=== PATIENT | female | born 1975 | race Caucasian/White ===

== ENCOUNTER 2018-05-17 10:28 | Emergency (ER) | payer OTHER, SELFPAY ==
[2018-05-17 10:37] VITALS: BP 170/107; PULSE 84; RESP 18; O2SAT 96; BMI 38.6
--- NOTE | 2018-05-17 11:26 | DI.RAD.S_ITS ---
PROCEDURE: XR CHEST 1V INDICATIONS: chest pain TECHNIQUE: One view of the chest was acquired. COMPARISON: None. FINDINGS: Surgical changes and devices: None. Lungs and pleura: No pleural effusions or pneumothorax. Lungs are clear. Mediastinum: Mediastinal contours appear normal. Heart size is normal. Bones and chest wall: No suspicious bony lesions. Overlying soft tissues appear unremarkable. IMPRESSION: No acute process. Dictated by: Armin Frey M.D. on 05/17/2018 at 12:06 Approved by: Armin Frey M.D. on 05/17/2018 at 12:06
[2018-05-17 11:32] LABS: Prothrombin Time 11.9 SECONDS (10.1-12.7)
[2018-05-17 11:34] LABS: Add Manual Diff / Slide Review NO; Basophils Percent Auto 0.9 % (0-2); Hematocrit 41.8 % (36-46); Hemoglobin 14.3 g/dL (12.0-16.0); Lymphocytes Percent Auto 29.8 % (25-40); Mean Corpuscular HGB Conc 34.1 % (30-36); Mean Corpuscular Hemoglobin 32.9 PG (26-34); Mean Corpuscular Volume 96.6 fL (80-100); Neutrophils Absolute Auto 5200 /uL (1500-7000); Neutrophils Percent Auto 62.3 % (50-75); Platelet Count 202 X10^3/uL (150-400); Red Blood Cell Count 4.33 X10^6/uL (4.0-5.2); Red Cell Distribution Width 13.2 % (11.6-14.8); White Blood Cell Count 8.3 X10^3/uL (4.5-11.0)
[2018-05-17 11:35] LABS: PTT Partial Thromboplastin Tim 29 SECONDS (26.4-36.2)
[2018-05-17 11:37] LABS: Alanine Aminotransferase 27 IU/L (9-52); Albumin 4.1 g/dL (3.5-5.0); Albumin Globulin Ratio 1.3 (1.0-2.8); Alkaline Phosphatase 53 U/L (38-126); Aspartate Aminotransferase 21 IU/L (14-36); BUN Creatinine Ratio 21.7 (6-22); Bilirubin Total 0.5 mg/dL (0.2-1.3); Blood Urea Nitrogen 13 mg/dL (7-17); Calcium 8.9 mg/dL (8.4-10.2); Carbon Dioxide 27 mmol/L (22-32); Chloride 106 mmol/L (98-107); Creatine Kinase 62 U/L (30-135); Estimated Glomerular Filt Rate > 60.0 mL/min (>60); Globulin 3.1 g/dL (1.7-4.1); Glucose 118 mg/dL (70-100); HEMOLYSIS < 15 (0-50); Lipase 57 U/L (23-300); Potassium 3.5 mmol/L (3.4-5.1); Sodium 143 mmol/L (137-145); Total Protein 7.2 g/dL (6.3-8.2)
[2018-05-17 11:50] LABS: Troponin I < 0.012 ng/mL (0.01-0.034)
--- NOTE | 2018-05-17 12:12 | ED.SOB ---
HPI - SOB/Dyspnea <Adina Perez PA-C - Last Filed: 05/17/18 19:39> General Chief Complaint: Shortness of Breath/Dyspnea Stated Complaint: MIGRAINE, CHEST PAIN, DIFF TO BREATH, ARM PAIN Time Seen by Provider: 05/17/18 12:12 Source: patient Mode of arrival: ambulatory Limitations: no limitations History of Present Illness This 43-year-old female comes to ED mainly due to increased dyspnea. She does have a history of COPD and states her home nebulizer treatments and albuterol inhaler have not been working (she has been on numerous other inhalers in the past but states she can't afford them now and does not have a PCP). She states that she has had this for 8 days, with increased coarse cough, clear sputum, and her chest feels tight, painful with breathing in. She also has chest pressure that she states is constant, there / regardless of activity. This has not acutely changed. She states that she coughs so hard at times that she can pass out. This is not new with her COPD. She states she has some bilateral earache, no increased sinus pressure or congestion, no sore throat. She states that she has also had a migraine all along with this. She states that she is not sleeping due to being up coughing. She has poor appetite. She states she has also developed soreness in her right shoulder, arm, wrist, and hand as well as her abdominal area. She states that she has had some nausea but no vomiting. She denies any new leg swelling or calf pain. She does notice some paresthesia in her fingers at times. 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 She has many aches but denies generalized body aches, denies fever, chills, sweats, or other new complaints on systems review other than feeling general malaise Related Data Home Medications Medication Instructions Recorded Confirmed acetaminophen [Tylenol] 1 dose PO PRN PRN 05/17/18 05/17/18 albuterol sulfate [ProAir HFA] 1 puff INHALATION PRN PRN 05/17/18 05/17/18 ibuprofen 1 dose PO PRN PRN 05/17/18 05/17/18 ipratropium-albuterol 3 ml INHALATION QID PRN 05/17/18 05/17/18 Previous Rx's Medication Instructions Recorded albuterol sulfate 2 inhalation INHALATION Q4H PRN #1 05/17/18 each codeine-guaifenesin 10 ml PO Q4-6H PRN #120 ml 05/17/18 prednisone 40 mg PO DAILY #8 tab 05/17/18 Allergies Allergy/AdvReac Type Severity Reaction Status Date / Time Penicillins Allergy Intermediate Hives Verified 05/17/18 10:42 Review of Systems <Adina Perez PA-C - Last Filed: 05/17/18 19:39> Review of Systems All systems reviewed & are unremarkable except as noted in HPI and below PFSH <Adina Perez PA-C - Last Filed: 05/17/18 19:39> Comment: No EtOH Exam <Adina Perez PA-C - Last Filed: 05/17/18 19:39> Narrative Exam Narrative: GENERAL APPEARANCE: Patient appears comfortable, intermittently tearful HEENT: PERRL, EOMI, TMs intact with dull light reflexes, normal oropharynx with a little PND noted NECK: Supple, no masses LUNGS: Generalized coarse breath sounds with expiratory wheezes, occasional hoarse cough on exam HEART: Rate and rhythm regular, normal S1 and S2, no S3 or S4. ABDOMEN: Soft, obese, nondistended, bowel sounds present x 4 quadrants, no masses palpable, no hepatosplenomegaly. Moderate generalized tenderness without guarding or rebound EXTREMITIES: No edema, no calf tenderness DERMATOLOGIC: No jaundice or exanthem NEUROLOGIC: Alert and oriented with normal speech and coordination MUSCULOSKELETAL: Moderate tenderness over the right superior shoulder, full range of motion of the right upper extremity throughout Initial Vital Signs Initial Vital Signs: Vital Signs Pulse Rate 84 05/17/18 10:37 Respiratory Rate 18 05/17/18 10:37 Blood Pressure 170/107 H 05/17/18 10:37 Pulse Oximetry 96 05/17/18 10:37 <Annamarie Sewell DO - Last Filed: 05/17/18 19:50> Initial Vital Signs Initial Vital Signs: Vital Signs Pulse Rate 84 05/17/18 10:37 Respiratory Rate 18 05/17/18 10:37 Blood Pressure 170/107 H 05/17/18 10:37 Pulse Oximetry 96 05/17/18 10:37 Course <Adina Perez PA-C - Last Filed: 05/17/18 19:39> Additional Information: Patient was sleeping comfortably prior to discharge, with improvement in her headache and chest tightness. She had reduced wheeze. She has been off of her steroid inhalers and maintenance therapy due to finances. Advised her to follow up with her PCP to talk about whether she may be able to get samples or eligible for patient assistance. For now, she will continue prednisone for the next 4 days, albuterol as needed, and agrees to schedule follow-up with her PCP early next week, return in the interim if acutely worse again Orders Ordered: ED Orders 05/17/18 11:15 Complete Blood Count AUTO DIFF Stat Comprehensive Metabolic Panel Stat Lipase Stat Partial Thromboplastin Time Stat Prothrombin Time INR Stat Troponin & CK Cardiac Panel Stat 05/17/18 11:26 XR chest 1V Stat 05/17/18 12:25 D Dimer Stat 05/17/18 13:00 Influenza A and B by PCR Rapid Stat Discontinued Medications Albuterol (Ventolin) 2.5 mg INH NOW ONE Stop: 05/17/18 12:31 Last Admin: 05/17/18 14:17 Dose: 2.5 mg Albuterol/Ipratropium (Duoneb) 3 ml INH NOW ONE Stop: 05/17/18 12:31 Last Admin: 05/17/18 12:58 Dose: 3 ml Diphenhydramine HCl (Benadryl) 50 mg IV NOW ONE Stop: 05/17/18 12:26 Last Admin: 05/17/18 13:01 Dose: 50 mg Sodium Chloride (Normal Saline 0.9%) 1,000 mls @ 1,000 mls/hr IV BOLUS ONE Stop: 05/17/18 13:24 Last Infusion: 05/17/18 15:18 Dose: 0 mls/hr Admin: 05/17/18 13:03 Dose: 1,000 mls/hr Ketorolac Tromethamine (Toradol) 30 mg IV NOW ONE Stop: 05/17/18 12:26 Last Admin: 05/17/18 13:02 Dose: 30 mg Methylprednisolone (Solu-Medrol 125 Mg Vial) 80 mg IV NOW ONE Stop: 05/17/18 12:26 Last Admin: 05/17/18 13:02 Dose: 80 mg Vital Signs - 8 hr 05/17/18 12:54 05/17/18 14:00 05/17/18 14:22 Pulse Rate 73 95 H 78 Respiratory Rate 14 18 18 Blood Pressure [Left Arm] 119/69 130/70 Pulse Oximetry 98 96 97 05/17/18 15:08 Pulse Rate 92 H Respiratory Rate 22 Blood Pressure [Left Arm] 126/73 Pulse Oximetry 98 <Annamarie Sewell DO - Last Filed: 05/17/18 19:50> Orders Ordered: ED Orders 05/17/18 11:15 Complete Blood Count AUTO DIFF Stat Comprehensive Metabolic Panel Stat Lipase Stat Partial Thromboplastin Time Stat Prothrombin Time INR Stat Troponin & CK Cardiac Panel Stat 05/17/18 11:26 XR chest 1V Stat 05/17/18 12:25 D Dimer Stat 05/17/18 13:00 Influenza A and B by PCR Rapid Stat Discontinued Medications Albuterol (Ventolin) 2.5 mg INH NOW ONE Stop: 05/17/18 12:31 Last Admin: 05/17/18 14:17 Dose: 2.5 mg Albuterol/Ipratropium (Duoneb) 3 ml INH NOW ONE Stop: 05/17/18 12:31 Last Admin: 05/17/18 12:58 Dose: 3 ml Diphenhydramine HCl (Benadryl) 50 mg IV NOW ONE Stop: 05/17/18 12:26 Last Admin: 05/17/18 13:01 Dose: 50 mg Sodium Chloride (Normal Saline 0.9%) 1,000 mls @ 1,000 mls/hr IV BOLUS ONE Stop: 05/17/18 13:24 Last Infusion: 05/17/18 15:18 Dose: 0 mls/hr Admin: 05/17/18 13:03 Dose: 1,000 mls/hr Ketorolac Tromethamine (Toradol) 30 mg IV NOW ONE Stop: 05/17/18 12:26 Last Admin: 05/17/18 13:02 Dose: 30 mg Methylprednisolone (Solu-Medrol 125 Mg Vial) 80 mg IV NOW ONE Stop: 05/17/18 12:26 Last Admin: 05/17/18 13:02 Dose: 80 mg Vital Signs - 8 hr 05/17/18 12:54 05/17/18 14:00 05/17/18 14:22 Pulse Rate 73 95 H 78 Respiratory Rate 14 18 18 Blood Pressure [Left Arm] 119/69 130/70 Pulse Oximetry 98 96 97 05/17/18 15:08 Pulse Rate 92 H Respiratory Rate 22 Blood Pressure [Left Arm] 126/73 Pulse Oximetry 98 MDM - SOB/Dyspnea <Adina Perez PA-C - Last Filed: 05/17/18 19:39> Lab Data Result diagrams: 05/17/18 11:15 05/17/18 11:15 Lab Results 05/17/18 05/17/18 05/17/18 Range/Units 11:15 11:15 11:15 WBC 8.3 (4.5-11.0) X10^3/uL RBC 4.33 (4.0-5.2) X10^6/uL Hgb 14.3 (12.0-16.0) g/dL Hct 41.8 (36-46) % MCV 96.6 (80-100) fL MCH 32.9 (26-34) PG MCHC 34.1 (30-36) % RDW 13.2 (11.6-14.8) % Plt Count 202 (150-400) X10^3/uL Neut % (Auto) 62.3 (50-75) % Lymph % (Auto) 29.8 (25-40) % Divide % (Auto) 5.0 (3-14) % Eos % (Auto) 2.0 (2-4) % Baso % (Auto) 0.9 (0-2) % Neut # (Auto) 5200 (9271-4110) /uL PT 11.9 (10.1-12.7) SECONDS INR 1.0 (0.9-1.3) APTT 29 (26.4-36.2) SECONDS D-Dimer (<230) ng/mL Sodium 143 (137-145) mmol/L Potassium 3.5 (3.4-5.1) mmol/L Chloride 106 (98-107) mmol/L Carbon Dioxide 27 (22-32) mmol/L BUN 13 (7-17) mg/dL Creatinine 0.60 (0.52-1.04) mg/dL Estimated GFR > 60.0 (>60) mL/min BUN/Creatinine Ratio 21.7 (6-22) Glucose 118 H (70-100) mg/dL Calcium 8.9 (8.4-10.2) mg/dL Total Bilirubin 0.5 (0.2-1.3) mg/dL AST 21 (14-36) IU/L ALT 27 (9-52) IU/L Alkaline Phosphatase 53 (38-126) U/L Total Creatine Kinase 62 (30-135) U/L CK-MB (CK-2) TNP CK-MB (CK-2) Rel Index TNP Troponin I < 0.012 (0.01-0.034) ng/mL Total Protein 7.2 (6.3-8.2) g/dL Albumin 4.1 (3.5-5.0) g/dL Globulin 3.1 (1.7-4.1) g/dL Albumin/Globulin Ratio 1.3 (1.0-2.8) Lipase 57 (23-300) U/L Influenza A & B (PCR) (Negative) 05/17/18 05/17/18 Range/Units 12:25 13:00 WBC (4.5-11.0) X10^3/uL RBC (4.0-5.2) X10^6/uL Hgb (12.0-16.0) g/dL Hct (36-46) % MCV (80-100) fL MCH (26-34) PG MCHC (30-36) % RDW (11.6-14.8) % Plt Count (150-400) X10^3/uL Neut % (Auto) (50-75) % Lymph % (Auto) (25-40) % Divide % (Auto) (3-14) % Eos % (Auto) (2-4) % Baso % (Auto) (0-2) % Neut # (Auto) (9712-7357) /uL PT (10.1-12.7) SECONDS INR (0.9-1.3) APTT (26.4-36.2) SECONDS D-Dimer 215 (<230) ng/mL Sodium (137-145) mmol/L Potassium (3.4-5.1) mmol/L Chloride (98-107) mmol/L Carbon Dioxide (22-32) mmol/L BUN (7-17) mg/dL Creatinine (0.52-1.04) mg/dL Estimated GFR (>60) mL/min BUN/Creatinine Ratio (6-22) Glucose (70-100) mg/dL Calcium (8.4-10.2) mg/dL Total Bilirubin (0.2-1.3) mg/dL AST (14-36) IU/L ALT (9-52) IU/L Alkaline Phosphatase (38-126) U/L Total Creatine Kinase (30-135) U/L CK-MB (CK-2) CK-MB (CK-2) Rel Index Troponin I (0.01-0.034) ng/mL Total Protein (6.3-8.2) g/dL Albumin (3.5-5.0) g/dL Globulin (1.7-4.1) g/dL Albumin/Globulin Ratio (1.0-2.8) Lipase (23-300) U/L Influenza A & B (PCR) Negative (Negative) Urine Dip Bedside Urine Glucose Negative Bedside Urine Bilirubin - Negative Bedside Urine Ketone - Negative Urine Specific [place] 1.025 Bedside Urine Occult Blood - Negative Bedside Urine pH 6.0 Bedside Urine Protein +/- 15 Bedside Urine Urobilinogen - Negative Bedside Urine Nitrite - Negative Bedside Urine Leukocytes - Negative Esterase Imaging Data Chest x-ray: Radiologist's impression: [place] [address] XRay Report Signed Patient: PUMA FISHMAN MR#: [id number] : 1975 Acct:[id number] Age/Sex: 43 / F Date of Service: 05/17/18 Loc: ED Accession Number: [id number] Procedure: XR chest 1V Ordering Provider: Annamarie Sewell D.O. PROCEDURE: XR CHEST 1V INDICATIONS: chest pain TECHNIQUE: One view of the chest was acquired. COMPARISON: None. FINDINGS: Surgical changes and devices: None. Lungs and pleura: No pleural effusions or pneumothorax. Lungs are clear. Mediastinum: Mediastinal contours appear normal. Heart size is normal. Bones and chest wall: No suspicious bony lesions. Overlying soft tissues appear unremarkable. IMPRESSION: No acute process. Dictated by: Armin Frey M.D. on 05/17/2018 at 12:06 Approved by: Armin Frey M.D. on 05/17/2018 at 12:06 <Annamarie Sewell, DO - Last Filed: 05/17/18 19:50> Lab Data Lab Results 05/17/18 05/17/18 05/17/18 Range/Units 11:15 11:15 11:15 WBC 8.3 (4.5-11.0) X10^3/uL RBC 4.33 (4.0-5.2) X10^6/uL Hgb 14.3 (12.0-16.0) g/dL Hct 41.8 (36-46) % MCV 96.6 (80-100) fL MCH 32.9 (26-34) PG MCHC 34.1 (30-36) % RDW 13.2 (11.6-14.8) % Plt Count 202 (150-400) X10^3/uL Neut % (Auto) 62.3 (50-75) % Lymph % (Auto) 29.8 (25-40) % Divide % (Auto) 5.0 (3-14) % Eos % (Auto) 2.0 (2-4) % Baso % (Auto) 0.9 (0-2) % Neut # (Auto) 5200 (8667-3231) /uL PT 11.9 (10.1-12.7) SECONDS INR 1.0 (0.9-1.3) APTT 29 (26.4-36.2) SECONDS D-Dimer (<230) ng/mL Sodium 143 (137-145) mmol/L Potassium 3.5 (3.4-5.1) mmol/L Chloride 106 (98-107) mmol/L Carbon Dioxide 27 (22-32) mmol/L BUN 13 (7-17) mg/dL Creatinine 0.60 (0.52-1.04) mg/dL Estimated GFR > 60.0 (>60) mL/min BUN/Creatinine Ratio 21.7 (6-22) Glucose 118 H (70-100) mg/dL Calcium 8.9 (8.4-10.2) mg/dL Total Bilirubin 0.5 (0.2-1.3) mg/dL AST 21 (14-36) IU/L ALT 27 (9-52) IU/L Alkaline Phosphatase 53 (38-126) U/L Total Creatine Kinase 62 (30-135) U/L CK-MB (CK-2) TNP CK-MB (CK-2) Rel Index TNP Troponin I < 0.012 (0.01-0.034) ng/mL Total Protein 7.2 (6.3-8.2) g/dL Albumin 4.1 (3.5-5.0) g/dL Globulin 3.1 (1.7-4.1) g/dL Albumin/Globulin Ratio 1.3 (1.0-2.8) Lipase 57 (23-300) U/L Influenza A & B (PCR) (Negative) 05/17/18 05/17/18 Range/Units 12:25 13:00 WBC (4.5-11.0) X10^3/uL RBC (4.0-5.2) X10^6/uL Hgb (12.0-16.0) g/dL Hct (36-46) % MCV (80-100) fL MCH (26-34) PG MCHC (30-36) % RDW (11.6-14.8) % Plt Count (150-400) X10^3/uL Neut % (Auto) (50-75) % Lymph % (Auto) (25-40) % Divide % (Auto) (3-14) % Eos % (Auto) (2-4) % Baso % (Auto) (0-2) % Neut # (Auto) (6098-9457) /uL PT (10.1-12.7) SECONDS INR (0.9-1.3) APTT (26.4-36.2) SECONDS D-Dimer 215 (<230) ng/mL Sodium (137-145) mmol/L Potassium (3.4-5.1) mmol/L Chloride (98-107) mmol/L Carbon Dioxide (22-32) mmol/L BUN (7-17) mg/dL Creatinine (0.52-1.04) mg/dL Estimated GFR (>60) mL/min BUN/Creatinine Ratio (6-22) Glucose (70-100) mg/dL Calcium (8.4-10.2) mg/dL Total Bilirubin (0.2-1.3) mg/dL AST (14-36) IU/L ALT (9-52) IU/L Alkaline Phosphatase (38-126) U/L Total Creatine Kinase (30-135) U/L CK-MB (CK-2) CK-MB (CK-2) Rel Index Troponin I (0.01-0.034) ng/mL Total Protein (6.3-8.2) g/dL Albumin (3.5-5.0) g/dL Globulin (1.7-4.1) g/dL Albumin/Globulin Ratio (1.0-2.8) Lipase (23-300) U/L Influenza A & B (PCR) Negative (Negative) Urine Dip Bedside Urine Glucose Negative Bedside Urine Bilirubin - Negative Bedside Urine Ketone - Negative Urine Specific [place] 1.025 Bedside Urine Occult Blood - Negative Bedside Urine pH 6.0 Bedside Urine Protein +/- 15 Bedside Urine Urobilinogen - Negative Bedside Urine Nitrite - Negative Bedside Urine Leukocytes - Negative Esterase Discharge Plan Departure Patient Disposition: Home Clinical Impression: Acute exacerbation of chronic obstructive airways disease, Headache Discharge Date/Time: 05/17/18 15:20 Interventions: ED Discharge Assessment Last Done: 05/17/18 15:28 Instructions: DI for Chronic Obstructive Pulmonary Disease Activity Restrictions/Additional Instructions: I think that your cough is due inflammation in your airways, which is why it goes along with your wheezing and tight chest. Please continue prednisone tomorrow as this will likely continue to help the cough as well as I have also given you a prescription for cough syrup to use at bedtime since that has helped to in the past. Please use your albuterol as needed. Rest today and drink fluids since this seems to be helping or headache. You can take [id number] Benadryl as needed for nausea and to help with sinus drainage. Please call your PCP today and let them know that you were in the emergency room and need to be seen for follow-up in the next few days since you are having breathing difficulties. They may be able to help you with inhaler samples or help you get on a patient assistance program. Prescriptions: New prednisone 20 mg tablet 40 mg PO DAILY Qty: 8 RF: 0 codeine-guaifenesin 10-100 mg/5 mL liquid 10 ml PO Q4-6H PRN (Reason: cough) Qty: 120 RF: 0 albuterol sulfate 90 mcg/actuation aerosol powdr breath activated 2 inhalation INHALATION Q4H PRN (Reason: shortness of breath or wheezing) Qty: 1 RF: 0 No Action acetaminophen [Tylenol] 325 mg Tablet 1 dose PO PRN PRN (Reason: pain) RF: 0 ipratropium-albuterol 0.5 mg-3 mg(2.5 mg base)/3 mL Solution For Nebulization 3 ml Inhalation QID PRN (Reason: Shortness Of Breath) RF: 0 ibuprofen 200 mg Tablet 1 dose PO PRN PRN (Reason: PAIN) RF: 0 albuterol sulfate [ProAir HFA] 90 mcg/actuation Hfa Aerosol Inhaler 1 puff Inhalation PRN PRN (Reason: Shortness Of Breath) RF: 0 [facility] [place] [Other] <Annamarie Sewell DO - Last Filed: 05/17/18 19:50> Cosign ED Attending Cosignature Attestation: I was immediately available in the department for consultation. This documentation has been reviewed and I agree with assessment and plan. Supervised by Annamarie Sewell DO
--- NOTE | 2018-05-17 12:30 | ED_ITS ---
HPI - SOB/Dyspnea <Adina Perez PA-C - Last Filed: 05/17/18 19:39> General Chief Complaint: Shortness of Breath/Dyspnea Stated Complaint: MIGRAINE, CHEST PAIN, DIFF TO BREATH, ARM PAIN Time Seen by Provider: 05/17/18 12:12 Source: patient Mode of arrival: ambulatory Limitations: no limitations History of Present Illness This 43-year-old female comes to ED mainly due to increased dyspnea. She does have a history of COPD and states her home nebulizer treatments and albuterol inhaler have not been working (she has been on numerous other inhalers in the past but states she can't afford them now and does not have a PCP). She states that she has had this for 8 days, with increased coarse cough, clear sputum, and her chest feels tight, painful with breathing in. She also has chest pressure that she states is constant, there / regardless of activity. This has not acutely changed. She states that she coughs so hard at times that she can pass out. This is not new with her COPD. She states she has some bilateral earache, no increased sinus pressure or congestion, no sore throat. She states that she has also had a migraine all along with this. She states that she is not sleeping due to being up coughing. She has poor appetite. She states she has also developed soreness in her right shoulder, arm, wrist, and hand as well as her abdominal area. She states that she has had some nausea but no vomiting. She denies any new leg swelling or calf pain. She does notice some paresthesia in her fingers at times. 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 She has many aches but denies generalized body aches , denies fever, chills, sweats, or other new complaints on systems review other than feeling general malaise Related Data Home Medications Medication Instructions Recorded Confirmed acetaminophen [Tylenol] 1 dose PO PRN PRN 05/17/18 05/17/18 albuterol sulfate [ProAir HFA] 1 puff INHALATION PRN PRN 05/17/18 05/17/18 ibuprofen 1 dose PO PRN PRN 05/17/18 05/17/18 ipratropium-albuterol 3 ml INHALATION QID PRN 05/17/18 05/17/18 Previous Rx's Medication Instructions Recorded albuterol sulfate 2 inhalation INHALATION Q4H PRN #1 05/17/18 each codeine-guaifenesin 10 ml PO Q4-6H PRN #120 ml 05/17/18 prednisone 40 mg PO DAILY #8 tab 05/17/18 Allergies Allergy/AdvReac Type Severity Reaction Status Date / Time Penicillins Allergy Intermediate Hives Verified 05/17/18 10:42 Review of Systems <Adina Perez PA-C - Last Filed: 05/17/18 19:39> Review of Systems All systems reviewed & are unremarkable except as noted in HPI and below PFSH <Adina Perez PA-C - Last Filed: 05/17/18 19:39> Comment: No EtOH Exam <Adina Perez PA-C - Last Filed: 05/17/18 19:39> Narrative Exam Narrative: GENERAL APPEARANCE: Patient appears comfortable, intermittently tearful HEENT: PERRL, EOMI, TMs intact with dull light reflexes, normal oropharynx with a little PND noted NECK: Supple, no masses LUNGS: Generalized coarse breath sounds with expiratory wheezes, occasional hoarse cough on exam HEART: Rate and rhythm regular, normal S1 and S2, no S3 or S4. ABDOMEN: Soft, obese, nondistended, bowel sounds present x 4 quadrants, no masses palpable, no hepatosplenomegaly. Moderate generalized tenderness without guarding or rebound EXTREMITIES: No edema, no calf tenderness DERMATOLOGIC: No jaundice or exanthem NEUROLOGIC: Alert and oriented with normal speech and coordination MUSCULOSKELETAL: Moderate tenderness over the right superior shoulder, full range of motion of the right upper extremity throughout Initial Vital Signs Initial Vital Signs: Vital Signs Pulse Rate 84 05/17/18 10:37 Respiratory Rate 18 05/17/18 10:37 Blood Pressure 170/107 H 05/17/18 10:37 Pulse Oximetry 96 05/17/18 10:37 <Annamarie Sewell DO - Last Filed: 05/17/18 19:50> Initial Vital Signs Initial Vital Signs: Vital Signs Pulse Rate 84 05/17/18 10:37 Respiratory Rate 18 05/17/18 10:37 Blood Pressure 170/107 H 05/17/18 10:37 Pulse Oximetry 96 05/17/18 10:37 Course <Adina Perez PA-C - Last Filed: 05/17/18 19:39> Additional Information: Patient was sleeping comfortably prior to discharge, with improvement in her headache and chest tightness. She had reduced wheeze. She has been off of her steroid inhalers and maintenance therapy due to finances. Advised her to follow up with her PCP to talk about whether she may be able to get samples or eligible for patient assistance. For now, she will continue prednisone for the next 4 days, albuterol as needed, and agrees to schedule follow-up with her PCP early next week, return in the interim if acutely worse again Orders Ordered: ED Orders 05/17/18 11:15 Complete Blood Count AUTO DIFF Stat Comprehensive Metabolic Panel Stat Lipase Stat Partial Thromboplastin Time Stat Prothrombin Time INR Stat Troponin & CK Cardiac Panel Stat 05/17/18 11:26 XR chest 1V Stat 05/17/18 12:25 D Dimer Stat 05/17/18 13:00 Influenza A and B by PCR Rapid Stat Discontinued Medications Albuterol (Ventolin) 2.5 mg INH NOW ONE Stop: 05/17/18 12:31 Last Admin: 05/17/18 14:17 Dose: 2.5 mg Albuterol/Ipratropium (Duoneb) 3 ml INH NOW ONE Stop: 05/17/18 12:31 Last Admin: 05/17/18 12:58 Dose: 3 ml Diphenhydramine HCl (Benadryl) 50 mg IV NOW ONE Stop: 05/17/18 12:26 Last Admin: 05/17/18 13:01 Dose: 50 mg Sodium Chloride (Normal Saline 0.9%) 1,000 mls @ 1,000 mls/hr IV BOLUS ONE Stop: 05/17/18 13:24 Last Infusion: 05/17/18 15:18 Dose: 0 mls/hr Admin: 05/17/18 13:03 Dose: 1,000 mls/hr Ketorolac Tromethamine (Toradol) 30 mg IV NOW ONE Stop: 05/17/18 12:26 Last Admin: 05/17/18 13:02 Dose: 30 mg Methylprednisolone (Solu-Medrol 125 Mg Vial) 80 mg IV NOW ONE Stop: 05/17/18 12:26 Last Admin: 05/17/18 13:02 Dose: 80 mg Vital Signs - 8 hr 05/17/18 12:54 05/17/18 14:00 05/17/18 14:22 Pulse Rate 73 95 H 78 Respiratory Rate 14 18 18 Blood Pressure [Left Arm] 119/69 130/70 Pulse Oximetry 98 96 97 05/17/18 15:08 Pulse Rate 92 H Respiratory Rate 22 Blood Pressure [Left Arm] 126/73 Pulse Oximetry 98 <Annamarie Sewell DO - Last Filed: 05/17/18 19:50> Orders Ordered: ED Orders 05/17/18 11:15 Complete Blood Count AUTO DIFF Stat Comprehensive Metabolic Panel Stat Lipase Stat Partial Thromboplastin Time Stat Prothrombin Time INR Stat Troponin & CK Cardiac Panel Stat 05/17/18 11:26 XR chest 1V Stat 05/17/18 12:25 D Dimer Stat 05/17/18 13:00 Influenza A and B by PCR Rapid Stat Discontinued Medications Albuterol (Ventolin) 2.5 mg INH NOW ONE Stop: 05/17/18 12:31 Last Admin: 05/17/18 14:17 Dose: 2.5 mg Albuterol/Ipratropium (Duoneb) 3 ml INH NOW ONE Stop: 05/17/18 12:31 Last Admin: 05/17/18 12:58 Dose: 3 ml Diphenhydramine HCl (Benadryl) 50 mg IV NOW ONE Stop: 05/17/18 12:26 Last Admin: 05/17/18 13:01 Dose: 50 mg Sodium Chloride (Normal Saline 0.9%) 1,000 mls @ 1,000 mls/hr IV BOLUS ONE Stop: 05/17/18 13:24 Last Infusion: 05/17/18 15:18 Dose: 0 mls/hr Admin: 05/17/18 13:03 Dose: 1,000 mls/hr Ketorolac Tromethamine (Toradol) 30 mg IV NOW ONE Stop: 05/17/18 12:26 Last Admin: 05/17/18 13:02 Dose: 30 mg Methylprednisolone (Solu-Medrol 125 Mg Vial) 80 mg IV NOW ONE Stop: 05/17/18 12:26 Last Admin: 05/17/18 13:02 Dose: 80 mg Vital Signs - 8 hr 05/17/18 12:54 05/17/18 14:00 05/17/18 14:22 Pulse Rate 73 95 H 78 Respiratory Rate 14 18 18 Blood Pressure [Left Arm] 119/69 130/70 Pulse Oximetry 98 96 97 05/17/18 15:08 Pulse Rate 92 H Respiratory Rate 22 Blood Pressure [Left Arm] 126/73 Pulse Oximetry 98 MDM - SOB/Dyspnea <Adina Perez PA-C - Last Filed: 05/17/18 19:39> Lab Data Result diagrams: 05/17/18 11:15 05/17/18 11:15 Lab Results 05/17/18 05/17/18 05/17/18 Range/Units 11:15 11:15 11:15 WBC 8.3 (4.5-11.0) X10^3/uL RBC 4.33 (4.0-5.2) X10^6/uL Hgb 14.3 (12.0-16.0) g/dL Hct 41.8 (36-46) % MCV 96.6 (80-100) fL MCH 32.9 (26-34) PG MCHC 34.1 (30-36) % RDW 13.2 (11.6-14.8) % Plt Count 202 (150-400) X10^3/uL Neut % (Auto) 62.3 (50-75) % Lymph % (Auto) 29.8 (25-40) % P[place] % (Auto) 5.0 (3-14) % Eos % (Auto) 2.0 (2-4) % Baso % (Auto) 0.9 (0-2) % Neut # (Auto) 5200 (4168-8713) /uL PT 11.9 (10.1-12.7) SECONDS INR 1.0 (0.9-1.3) APTT 29 (26.4-36.2) SECONDS D-Dimer (<230) ng/mL Sodium 143 (137-145) mmol/L Potassium 3.5 (3.4-5.1) mmol/L Chloride 106 (98-107) mmol/L Carbon Dioxide 27 (22-32) mmol/L BUN 13 (7-17) mg/dL Creatinine 0.60 (0.52-1.04) mg/dL Estimated GFR > 60.0 (>60) mL/min BUN/Creatinine Ratio 21.7 (6-22) Glucose 118 H (70-100) mg/dL Calcium 8.9 (8.4-10.2) mg/dL Total Bilirubin 0.5 (0.2-1.3) mg/dL AST 21 (14-36) IU/L ALT 27 (9-52) IU/L Alkaline Phosphatase 53 (38-126) U/L Total Creatine Kinase 62 (30-135) U/L CK-MB (CK-2) TNP CK-MB (CK-2) Rel Index TNP Troponin I < 0.012 (0.01-0.034) ng/mL Total Protein 7.2 (6.3-8.2) g/dL Albumin 4.1 (3.5-5.0) g/dL Globulin 3.1 (1.7-4.1) g/dL Albumin/Globulin Ratio 1.3 (1.0-2.8) Lipase 57 (23-300) U/L Influenza A & B (PCR) (Negative) 05/17/18 05/17/18 Range/Units 12:25 13:00 WBC (4.5-11.0) X10^3/uL RBC (4.0-5.2) X10^6/uL Hgb (12.0-16.0) g/dL Hct (36-46) % MCV (80-100) fL MCH (26-34) PG MCHC (30-36) % RDW (11.6-14.8) % Plt Count (150-400) X10^3/uL Neut % (Auto) (50-75) % Lymph % (Auto) (25-40) % [place] % (Auto) (3-14) % Eos % (Auto) (2-4) % Baso % (Auto) (0-2) % Neut # (Auto) (8094-4712) /uL PT (10.1-12.7) SECONDS INR (0.9-1.3) APTT (26.4-36.2) SECONDS D-Dimer 215 (<230) ng/mL Sodium (137-145) mmol/L Potassium (3.4-5.1) mmol/L Chloride (98-107) mmol/L Carbon Dioxide (22-32) mmol/L BUN (7-17) mg/dL Creatinine (0.52-1.04) mg/dL Estimated GFR (>60) mL/min BUN/Creatinine Ratio (6-22) Glucose (70-100) mg/dL Calcium (8.4-10.2) mg/dL Total Bilirubin (0.2-1.3) mg/dL AST (14-36) IU/L ALT (9-52) IU/L Alkaline Phosphatase (38-126) U/L Total Creatine Kinase (30-135) U/L CK-MB (CK-2) CK-MB (CK-2) Rel Index Troponin I (0.01-0.034) ng/mL Total Protein (6.3-8.2) g/dL Albumin (3.5-5.0) g/dL Globulin (1.7-4.1) g/dL Albumin/Globulin Ratio (1.0-2.8) Lipase (23-300) U/L Influenza A & B (PCR) Negative (Negative) Urine Dip Bedside Urine Glucose Negative Bedside Urine Bilirubin - Negative Bedside Urine Ketone - Negative Urine Specific [place] 1.025 Bedside Urine Occult Blood - Negative Bedside Urine pH 6.0 Bedside Urine Protein +/- 15 Bedside Urine Urobilinogen - Negative Bedside Urine Nitrite - Negative Bedside Urine Leukocytes - Negative Esterase Imaging Data Chest x-ray: Radiologist's impression: [place] [address] XRay Report Signed Patient: PUMA FISHMAN MR#: [id number] : 1975 Acct:[id number] Age/Sex: 43 / F Date of Service: 05/17/18 Loc: ED Accession Number: [id number] Procedure: XR chest 1V Ordering Provider: Annamarie Sewell D.O. PROCEDURE: XR CHEST 1V INDICATIONS: chest pain TECHNIQUE: One view of the chest was acquired. COMPARISON: None. FINDINGS: Surgical changes and devices: None. Lungs and pleura: No pleural effusions or pneumothorax. Lungs are clear. Mediastinum: Mediastinal contours appear normal. Heart size is normal. Bones and chest wall: No suspicious bony lesions. Overlying soft tissues appear unremarkable. IMPRESSION: No acute process. Dictated by: Armin Frey M.D. on 05/17/2018 at 12:06 Approved by: Armin Frey M.D. on 05/17/2018 at 12:06 <Annamarie Sewell, DO - Last Filed: 05/17/18 19:50> Lab Data Lab Results 05/17/18 05/17/18 05/17/18 Range/Units 11:15 11:15 11:15 WBC 8.3 (4.5-11.0) X10^3/uL RBC 4.33 (4.0-5.2) X10^6/uL Hgb 14.3 (12.0-16.0) g/dL Hct 41.8 (36-46) % MCV 96.6 (80-100) fL MCH 32.9 (26-34) PG MCHC 34.1 (30-36) % RDW 13.2 (11.6-14.8) % Plt Count 202 (150-400) X10^3/uL Neut % (Auto) 62.3 (50-75) % Lymph % (Auto) 29.8 (25-40) % [place] % (Auto) 5.0 (3-14) % Eos % (Auto) 2.0 (2-4) % Baso % (Auto) 0.9 (0-2) % Neut # (Auto) 5200 (5342-6976) /uL PT 11.9 (10.1-12.7) SECONDS INR 1.0 (0.9-1.3) APTT 29 (26.4-36.2) SECONDS D-Dimer (<230) ng/mL Sodium 143 (137-145) mmol/L Potassium 3.5 (3.4-5.1) mmol/L Chloride 106 (98-107) mmol/L Carbon Dioxide 27 (22-32) mmol/L BUN 13 (7-17) mg/dL Creatinine 0.60 (0.52-1.04) mg/dL Estimated GFR > 60.0 (>60) mL/min BUN/Creatinine Ratio 21.7 (6-22) Glucose 118 H (70-100) mg/dL Calcium 8.9 (8.4-10.2) mg/dL Total Bilirubin 0.5 (0.2-1.3) mg/dL AST 21 (14-36) IU/L ALT 27 (9-52) IU/L Alkaline Phosphatase 53 (38-126) U/L Total Creatine Kinase 62 (30-135) U/L CK-MB (CK-2) TNP CK-MB (CK-2) Rel Index TNP Troponin I < 0.012 (0.01-0.034) ng/mL Total Protein 7.2 (6.3-8.2) g/dL Albumin 4.1 (3.5-5.0) g/dL Globulin 3.1 (1.7-4.1) g/dL Albumin/Globulin Ratio 1.3 (1.0-2.8) Lipase 57 (23-300) U/L Influenza A & B (PCR) (Negative) 05/17/18 05/17/18 Range/Units 12:25 13:00 WBC (4.5-11.0) X10^3/uL RBC (4.0-5.2) X10^6/uL Hgb (12.0-16.0) g/dL Hct (36-46) % MCV (80-100) fL MCH (26-34) PG MCHC (30-36) % RDW (11.6-14.8) % Plt Count (150-400) X10^3/uL Neut % (Auto) (50-75) % Lymph % (Auto) (25-40) % [place] % (Auto) (3-14) % Eos % (Auto) (2-4) % Baso % (Auto) (0-2) % Neut # (Auto) (0624-4636) /uL PT (10.1-12.7) SECONDS INR (0.9-1.3) APTT (26.4-36.2) SECONDS D-Dimer 215 (<230) ng/mL Sodium (137-145) mmol/L Potassium (3.4-5.1) mmol/L Chloride (98-107) mmol/L Carbon Dioxide (22-32) mmol/L BUN (7-17) mg/dL Creatinine (0.52-1.04) mg/dL Estimated GFR (>60) mL/min BUN/Creatinine Ratio (6-22) Glucose (70-100) mg/dL Calcium (8.4-10.2) mg/dL Total Bilirubin (0.2-1.3) mg/dL AST (14-36) IU/L ALT (9-52) IU/L Alkaline Phosphatase (38-126) U/L Total Creatine Kinase (30-135) U/L CK-MB (CK-2) CK-MB (CK-2) Rel Index Troponin I (0.01-0.034) ng/mL Total Protein (6.3-8.2) g/dL Albumin (3.5-5.0) g/dL Globulin (1.7-4.1) g/dL Albumin/Globulin Ratio (1.0-2.8) Lipase (23-300) U/L Influenza A & B (PCR) Negative (Negative) Urine Dip Bedside Urine Glucose Negative Bedside Urine Bilirubin - Negative Bedside Urine Ketone - Negative Urine Specific [place] 1.025 Bedside Urine Occult Blood - Negative Bedside Urine pH 6.0 Bedside Urine Protein +/- 15 Bedside Urine Urobilinogen - Negative Bedside Urine Nitrite - Negative Bedside Urine Leukocytes - Negative Esterase Discharge Plan Departure Patient Disposition: Home Clinical Impression: Acute exacerbation of chronic obstructive airways disease, Headache Discharge Date/Time: 05/17/18 15:20 Interventions: ED Discharge Assessment Last Done: 05/17/18 15:28 Instructions: DI for Chronic Obstructive Pulmonary Disease Activity Restrictions/Additional Instructions: I think that your cough is due inflammation in your airways, which is why it goes along with your wheezing and tight chest. Please continue prednisone tomorrow as this will likely continue to help the cough as well as I have also given you a prescription for cough syrup to use at bedtime since that has helped to in the past. Please use your albuterol as needed. Rest today and drink fluids since this seems to be helping or headache. You can take over-the- counter Benadryl as needed for nausea and to help with sinus drainage. Please call your PCP today and let them know that you were in the emergency room and need to be seen for follow-up in the next few days since you are having breathing difficulties. They may be able to help you with inhaler samples or help you get on a patient assistance program. Prescriptions: New prednisone 20 mg tablet 40 mg PO DAILY Qty: 8 RF: 0 codeine-guaifenesin 10-100 mg/5 mL liquid 10 ml PO Q4-6H PRN (Reason: cough) Qty: 120 RF: 0 albuterol sulfate 90 mcg/actuation aerosol powdr breath activated 2 inhalation INHALATION Q4H PRN (Reason: shortness of breath or wheezing) Qty : 1 RF: 0 No Action acetaminophen [Tylenol] 325 mg Tablet 1 dose PO PRN PRN (Reason: pain) RF: 0 ipratropium-albuterol 0.5 mg-3 mg(2.5 mg base)/3 mL Solution For Nebulization 3 ml Inhalation QID PRN (Reason: Shortness Of Breath) RF: 0 ibuprofen 200 mg Tablet 1 dose PO PRN PRN (Reason: PAIN) RF: 0 albuterol sulfate [ProAir HFA] 90 mcg/actuation Hfa Aerosol Inhaler 1 puff Inhalation PRN PRN (Reason: Shortness Of Breath) RF: 0 [facility] <Annamarie Sewell DO - Last Filed: 05/17/18 19:50> Cosign ED Attending Cosignature Attestation: I was immediately available in the department for consultation. This documentation has been reviewed and I agree with assessment and plan. Supervised by Annamarie Sewell DO
[2018-05-17 12:54] VITALS: BP 119/69; PULSE 73; RESP 14; O2SAT 98
[2018-05-17] MEDS: ALBUTEROL/IPRATROPIUM 3 ML AMPUL INH (12:58)
[2018-05-17] MEDS: diphenhydrAMINE 50 MG/ML VIAL IV (13:01)
[2018-05-17] MEDS: KETOROLAC 60 MG/2 ML VIAL 30 MG IV (13:02)
[2018-05-17] MEDS: methylPREDNISolone 125 MG/2 ML VIAL 80 MG IV (13:02)
[2018-05-17] MEDS: SODIUM CHLORIDE 0.9% 1,000 ML 1000 ML IV (13:03)
[2018-05-17 13:13] LABS: D Dimer 215 ng/mL (<230)
[2018-05-17 13:20] LABS: Influenza A and B by PCR Rapid Negative (Negative)
[2018-05-17 14:00] VITALS: BP 130/70; PULSE 95; RESP 18; O2SAT 96
[2018-05-17] MEDS: ALBUTEROL 2.5 MG/3 ML NEB (ADULT) INH (14:17)
[2018-05-17 14:22] VITALS: PULSE 78; RESP 18; O2SAT 97
[2018-05-17 15:08] VITALS: BP 126/73; PULSE 92; RESP 22; O2SAT 98
== END 2018-05-17 15:20 | disposition home or self-care (01) ==
PROVIDERS: Emergency Medicine; Emergency Provider Internal Medicine
DX: J44.9 Chronic obstructive pulmonary disease, unspecified (principal); R51 Headache
CPT/HCPCS: 36591; 71045; 80053; 81003; 82550; 83690; 84484; 85025; 85379; 85610; 85730; 87400; 93005; 94640; 96361; 96374; 96375; 99284; 99285; J1200; J1885; J2930; J7613

== ENCOUNTER 2018-07-01 12:15 | Emergency (ER) | payer OTHER, SELFPAY ==
[2018-07-01] VITALS (8 sets, daily range): BP systolic 133–154; BP diastolic 69–89; PULSE 73–112; RESP 18–30; TEMP 36.5; O2SAT 92–97
[2018-07-01] MEDS: ALBUTEROL 2.5 MG/3 ML NEB (ADULT) INH ×2 (12:52→13:00)
--- NOTE | 2018-07-01 13:12 | DI.RAD.S_ITS ---
PROCEDURE: XR CHEST 2V INDICATIONS: shortness of breath TECHNIQUE: 2 views of the chest were acquired. COMPARISON: [facility], , XR CHEST 1V, 05/17/2018, 12:14. FINDINGS: Surgical changes and devices: None. Lungs and pleura: Lungs are clear. No pleural effusions or pneumothorax. Mediastinum: Mediastinal contours are normal. Heart size is normal. Bones and chest wall: No suspicious bony abnormalities. Soft tissues appear unremarkable. IMPRESSION: No acute cardiopulmonary disease process. Dictated by: Ivette Keane MD, PhD on 07/01/2018 at 13:46 Approved by: Ivette Keane MD, PhD on 07/01/2018 at 13:46
[2018-07-01 13:38] LABS: Add Manual Diff / Slide Review NO; Basophils Absolute Auto 0 /uL (0-100); Basophils Percent Auto 0.5 % (0-2); Eosinophils Absolute Auto 200 /uL (0-450); Eosinophils Percent Auto 2.5 % (2-4); Hematocrit 43.6 % (36-46); Hemoglobin 14.7 g/dL (12.0-16.0); Lymphocytes Absolute Auto 2100 /uL (1100-4500); Lymphocytes Percent Auto 26.8 % (25-40); Mean Corpuscular HGB Conc 33.8 % (30-36); Mean Corpuscular Hemoglobin 32.4 PG (26-34); Mean Corpuscular Volume 95.9 fL (80-100); Monocytes Absolute Auto 800 /uL (0-900); Monocytes Percent Auto 10.2 % (3-14); Neutrophils Absolute Auto 4600 /uL (1500-7000); Platelet Count 198 X10^3/uL (150-400); Red Blood Cell Count 4.54 X10^6/uL (4.0-5.2); Red Cell Distribution Width 13.3 % (11.6-14.8); White Blood Cell Count 7.8 X10^3/uL (4.5-11.0)
[2018-07-01] MEDS: methylPREDNISolone 125 MG/2 ML VIAL IV (13:43)
[2018-07-01] MEDS: LORazepam 2 MG/ML SYRINGE 0.5 MG IV (13:43)
[2018-07-01 13:50] LABS: Alanine Aminotransferase 39 IU/L (9-52); Albumin 4.4 g/dL (3.5-5.0); Albumin Globulin Ratio 1.4 (1.0-2.8); Alkaline Phosphatase 60 U/L (38-126); Aspartate Aminotransferase 25 IU/L (14-36); BUN Creatinine Ratio 18.3 (6-22); Bilirubin Total 0.5 mg/dL (0.2-1.3); Blood Urea Nitrogen 11 mg/dL (7-17); Carbon Dioxide 26 mmol/L (22-32); Chloride 104 mmol/L (98-107); Estimated Glomerular Filt Rate > 60.0 mL/min (>60); Globulin 3.2 g/dL (1.7-4.1); Glucose 103 mg/dL (70-100); HEMOLYSIS < 15 (0-50); Potassium 3.1 mmol/L (3.4-5.1); Sodium 140 mmol/L (137-145); Total Protein 7.6 g/dL (6.3-8.2)
[2018-07-01 14:04] LABS: Influenza A and B by PCR Rapid Negative (Negative)
[2018-07-01 14:23] LABS: Fractionated Inspired Oxygen 21; HCO3 ABG 24 mmol/L (22-26); Oxygen Saturation ABG 93 % (95-100); PCO2 ABG 33.1 mmHg (35-45); PO2 ABG 64 mmHg (80-100); TCO2 ABG 25 mmol/L (21-31); pH ABG 7.47 (7.35-7.45)
--- NOTE | 2018-07-01 14:52 | ED_ITS ---
HPI - SOB/Dyspnea General Chief Complaint: Shortness of Breath/Dyspnea Stated Complaint: says she has bronchitis Time Seen by Provider: 07/01/18 13:19 Source: patient and family (twin sister) Mode of arrival: ambulatory Limitations: no limitations History of Present Illness This is a 43-year-old female that comes to the emergency department with complaint of shortness of breath. Patient states that she had symptoms for about 5 days they have been rapidly worsening. She has not had fevers, she has had cough that has been productive with green and yellow sputum. She feels quite short of breath. She used to be on albuterol and steroid inhalers but because of money has been off of them. She denies any chest pain or pressure. No nausea, no vomiting. She has had loose watery stools. She has had some swelling in her lower extremities. She continues to smoke tobacco. She has never required BiPAP for her COPD or intubation. Related Data Home Medications Medication Instructions Recorded Confirmed albuterol sulfate [ProAir HFA] 1 puff INHALATION PRN PRN 05/17/18 07/01/18 ipratropium-albuterol 3 ml INHALATION QID PRN 05/17/18 07/01/18 Previous Rx's Medication Instructions Recorded albuterol sulfate 2 puff INHALATION Q4-6H PRN #8 gram 07/01/18 albuterol sulfate 2.5 mg INHALATION Q4-6H PRN #75 ml 07/01/18 beclomethasone dipropionate [Qvar 1 puff INHALATION BID #10.6 gram 07/01/18 RediHaler] prednisone See Rx Instructions .ROUTE 07/01/18 .COMPLEX #15 each Allergies Allergy/AdvReac Type Severity Reaction Status Date / Time Penicillins Allergy Intermediate Hives Verified 05/17/18 10:42 Review of Systems Review of Systems ROS Unobtainable: All systems reviewed & are unremarkable except as noted in HPI and below Constitutional Denies chills, Denies fever(s), Denies lethargy and Denies weakness Cardiovascular Denies chest pain, Denies diaphoresis, Denies syncope, Denies irregular heart rhythm, Reports leg edema (Both legs), Denies lightheadedness, Denies palpitations, Reports dyspnea, Reports dyspnea on exertion and Denies orthopnea Respiratory Reports change in phlegm color (Green and yellow), Reports chest congestion, Reports cough, Denies pain on inspiration, Denies pain with cough, Reports dyspnea, Reports dyspnea on exertion, Denies stridor and Reports wheezing Gastrointestinal Gastrointestinal: Denies abdominal pain, Denies melena, Denies change in bowel habits, Reports diarrhea, Denies nausea and Denies vomiting Integumentary/Breasts Denies rash Neurologic Denies syncope and Denies weakness Endocrine Denies palpitations Allergic/Immunologic Reports wheezing [facility] Medical History COPD (chronic obstructive pulmonary disease) (Chronic) Migraine (Chronic) Status post tubal ligation (Resolved) Surgical History Status post partial thyroidectomy (Resolved) Family History Other No significant family history Social History Smoking Status: Current every day smoker Family History Other No significant family history Social History Smoking Status: Current every day smoker Exam Narrative Exam Narrative: GENERAL: Alert and oriented x three, obese female in moderate distress. HEENT: Head normocephalic, atraumatic, EOMI, pupils reactive, face symmetric, moist mucous membranes NECK: Supple, full range of motion CARDIOVASCULAR: Regular rate and rhythm without murmurs, rubs or gallops. RESPIRATORY: Breath sounds equal bilaterally, diffuse wheezing, mild tachypnea. Speaks in 3-4 word sentences. ABDOMEN: Soft, nontender. Normoactive bowel sounds all 4 quadrants. No guarding or rebound, rigidity, no mass : No CVA tenderness EXTREMITIES: Normal range of motion, no clubbing or edema. Neurovascularly intact NEUROLOGICAL: Cranial nerves II through XII grossly intact. Moving all extremities SKIN: Warm, dry, no petechiae, no rashes or lesions. Initial Vital Signs Initial Vital Signs: Vital Signs Temperature 97.7 F 07/01/18 12:32 Pulse Rate 91 H 07/01/18 12:32 Respiratory Rate 26 H 07/01/18 12:32 Blood Pressure 144/89 H 07/01/18 12:32 Pulse Oximetry 95 07/01/18 12:32 Course Orders Ordered: ED Orders 07/01/18 13:12 Consult to Respiratory Therapy Evaluate & Treat XR chest 2V Stat EKG-12 Lead Stat 07/01/18 13:25 Complete Blood Count AUTO DIFF Stat Comprehensive Metabolic Panel Stat Lactate (Lactic Acid) Stat 07/01/18 13:45 Influenza A and B by PCR Rapid Stat 07/01/18 14:03 Arterial Blood Gas Stat Discontinued Medications Albuterol (Ventolin) 2.5 mg INH NOW PRN PRN Reason: Shortness Of Breath Or Wheezing Last Admin: 07/01/18 13:00 Dose: 2.5 mg Admin: 07/01/18 12:52 Dose: 2.5 mg Lorazepam (Ativan) 0.5 mg IV NOW ONE Stop: 07/01/18 13:42 Last Admin: 07/01/18 13:43 Dose: 0.5 mg Methylprednisolone (Solu-Medrol 125 Mg Vial) 125 mg IV NOW ONE Stop: 07/01/18 13:20 Last Admin: 07/01/18 13:43 Dose: 125 mg Vital Signs - 8 hr 07/01/18 12:32 07/01/18 12:54 07/01/18 13:00 Temperature 97.7 F Pulse Rate 91 H 96 H 99 H Respiratory Rate 26 H 30 H 25 H Blood Pressure 144/89 H Blood Pressure [Left Arm] 138/79 Pulse Oximetry 95 97 95 07/01/18 13:50 07/01/18 14:52 07/01/18 15:00 Temperature Pulse Rate 112 H 94 H 73 Respiratory Rate 28 H 19 18 Blood Pressure Blood Pressure [Left Arm] 144/87 H 133/74 135/69 Pulse Oximetry 95 94 94 07/01/18 15:28 07/01/18 16:08 Temperature Pulse Rate 108 H 95 H Respiratory Rate 24 Blood Pressure Blood Pressure [Left Arm] 154/86 H Pulse Oximetry 92 95 MDM - SOB/Dyspnea Lab Data Attestation: I reviewed the patient's lab results. Result diagrams: 07/01/18 13:25 07/01/18 13:25 Lab Results 07/01/18 07/01/18 07/01/18 Range/Units 13:25 13:25 13:25 WBC 7.8 (4.5-11.0) X10^3/uL RBC 4.54 (4.0-5.2) X10^6/uL Hgb 14.7 (12.0-16.0) g/dL Hct 43.6 (36-46) % MCV 95.9 (80-100) fL MCH 32.4 (26-34) PG MCHC 33.8 (30-36) % RDW 13.3 (11.6-14.8) % Plt Count 198 (150-400) X10^3/uL Neut % (Auto) 60.0 (50-75) % Lymph % (Auto) 26.8 (25-40) % [place] % (Auto) 10.2 (3-14) % Eos % (Auto) 2.5 (2-4) % Baso % (Auto) 0.5 (0-2) % Neut # (Auto) 4600 (1744-4583) /uL Lymph # (Auto) 2100 (6965-2457) /uL [place] # (Auto) 800 (0-900) /uL Eos # (Auto) 200 (0-450) /uL Baso # (Auto) 0 (0-100) /uL ABG pH (7.35-7.45) ABG pCO2 (35-45) mmHg ABG pO2 (80-100) mmHg ABG HCO3 (22-26) mmol/L ABG Total CO2 (21-31) mmol/L ABG O2 Saturation (95-100) % ABG Base Excess (-2-2) mmol/L FiO2 Sodium 140 (137-145) mmol/L Potassium 3.1 L (3.4-5.1) mmol/L Chloride 104 (98-107) mmol/L Carbon Dioxide 26 (22-32) mmol/L BUN 11 (7-17) mg/dL Creatinine 0.60 (0.52-1.04) mg/dL Estimated GFR > 60.0 (>60) mL/min BUN/Creatinine Ratio 18.3 (6-22) Glucose 103 H (70-100) mg/dL Lactate 2.0 (0.7-2.1) mmol/L Calcium 9.0 (8.4-10.2) mg/dL Total Bilirubin 0.5 (0.2-1.3) mg/dL AST 25 (14-36) IU/L ALT 39 (9-52) IU/L Alkaline Phosphatase 60 (38-126) U/L Total Protein 7.6 (6.3-8.2) g/dL Albumin 4.4 (3.5-5.0) g/dL Globulin 3.2 (1.7-4.1) g/dL Albumin/Globulin Ratio 1.4 (1.0-2.8) Influenza A & B (PCR) (Negative) 07/01/18 07/01/18 Range/Units 13:45 14:03 WBC (4.5-11.0) X10^3/uL RBC (4.0-5.2) X10^6/uL Hgb (12.0-16.0) g/dL Hct (36-46) % MCV (80-100) fL MCH (26-34) PG MCHC (30-36) % RDW (11.6-14.8) % Plt Count (150-400) X10^3/uL Neut % (Auto) (50-75) % Lymph % (Auto) (25-40) % [place] % (Auto) (3-14) % Eos % (Auto) (2-4) % Baso % (Auto) (0-2) % Neut # (Auto) (8854-7166) /uL Lymph # (Auto) (0682-1752) /uL [place] # (Auto) (0-900) /uL Eos # (Auto) (0-450) /uL Baso # (Auto) (0-100) /uL ABG pH 7.47 H (7.35-7.45) ABG pCO2 33.1 L (35-45) mmHg ABG pO2 64 L (80-100) mmHg ABG HCO3 24 (22-26) mmol/L ABG Total CO2 25 (21-31) mmol/L ABG O2 Saturation 93 L (95-100) % ABG Base Excess 0.0 (-2-2) mmol/L FiO2 21 Sodium (137-145) mmol/L Potassium (3.4-5.1) mmol/L Chloride (98-107) mmol/L Carbon Dioxide (22-32) mmol/L BUN (7-17) mg/dL Creatinine (0.52-1.04) mg/dL Estimated GFR (>60) mL/min BUN/Creatinine Ratio (6-22) Glucose (70-100) mg/dL Lactate (0.7-2.1) mmol/L Calcium (8.4-10.2) mg/dL Total Bilirubin (0.2-1.3) mg/dL AST (14-36) IU/L ALT (9-52) IU/L Alkaline Phosphatase (38-126) U/L Total Protein (6.3-8.2) g/dL Albumin (3.5-5.0) g/dL Globulin (1.7-4.1) g/dL Albumin/Globulin Ratio (1.0-2.8) Influenza A & B (PCR) Negative (Negative) Urine Dip Bedside Urine Glucose 100 mg/dl Bedside Urine Bilirubin + 1 Bedside Urine Ketone +/- 5 Urine Specific [place] 1.025 Bedside Urine Occult Blood - Negative Bedside Urine pH 6.0 Bedside Urine Protein + 30 Bedside Urine Urobilinogen +/- 1mg Bedside Urine Nitrite - Negative Bedside Urine Leukocytes +/- 15 Esterase ABG Data ABG results: ABG pH is 7.47 with a pCO2 of 33 a PaO2 of 60 for a bicarb of 24 and an FiO2 of 21. Interpretation: Primary Respiratory Alkalosis, Secondary Metabolic Alkalosis Imaging Data Chest x-ray: Radiologist's impression: PUMA FISHMAN 43 F 1975 [place] [address] XRay Report Signed Patient: PUMA FISHMAN LMR#: [id number] : 1975Acct:[id number] Age/Sex: 43 / FDate of Service: 07/01/18 Loc: ED Accession Number: [id number] Procedure: XR chest 2V Ordering Provider: Annamarie Sewell D.O. PROCEDURE: XR CHEST 2V INDICATIONS: shortness of breath TECHNIQUE: 2 views of the chest were acquired. COMPARISON: [facility], , XR CHEST 1V, 05/17/2018, 12:14. FINDINGS: Surgical changes and devices: None. Lungs and pleura: Lungs are clear. No pleural effusions or pneumothorax. Mediastinum: Mediastinal contours are normal. Heart size is normal. Bones and chest wall: No suspicious bony abnormalities. Soft tissues appear unremarkable. IMPRESSION: No acute cardiopulmonary disease process. Dictated by: Ivette Keane MD, PhD on 07/01/2018 at 13:46 Approved by: Ivette Keane MD, PhD on 07/01/2018 at 13:46 ECG Data Attestation: I personally reviewed and interpreted this ECG as follows: MDM Narrative Medical decision making narrative: Patient appears to have a component of anxiety along with her COPD exacerbation. Given a little bit of Ativan is occasionally when I walked by the room she is not coughing or puffing or having difficulty breathing. Chest x-ray shows no acute disease or infiltrate. Patient has been afebrile. Flu swab is negative. Plan to give patient some steroids and re-evaluate. She had 4 neb treatments at home, she received 1 at her primary care office and then drove here where she received another 2 albuterol in the department. Her primary care is through [facility] physicians. patient's lab work, chest x-ray did not show any acute findings. Patient continues to be a little bit wheezy but not significantly so. Her work of breathing has improved patient he was ambulated she maintained her oxygenation at 93%. She She does have some wheeze afterwards. But mild. Discussed with patient she does not wish for admission. She is off her normal inhalers, will refill her albuterol as well as albuterol vials she has a nebulizer machine at home. She used to be on a steroid inhaler but is not able to 140 but will give her prescription today to see if this 1 May be cheaper. Given a steroid Dosepak for tapering over 5 days. We did discuss to return she is having any worsening also would recommend not smoking. Discharge Plan Departure Patient Disposition: Home Clinical Impression: Acute exacerbation of chronic obstructive airways disease Discharge Date/Time: 07/01/18 16:17 Interventions: ED Discharge Assessment Last Done: 07/01/18 16:11 Instructions: DI for Chronic Obstructive Pulmonary Disease Activity Restrictions/Additional Instructions: Follow-up with her physician in the next 2-3 days for recheck. Call for an appointment. Take oral steroids until they are completely gone. Use 1-2 puffs on your albuterol puffer every 4 hr as needed for wheezing. You may use 1-2 vials of albuterol nebulized every 4 hr instead of as well. You have also been prescribed a steroid inhaler. use this twice daily regardless of symptoms. Prescriptions were sent to [facility] in [place]. Return to the ER for fevers greater than 100.4, worsening shortness of breath, passing out, lightheadedness, new chest pain, more difficulty with breathing, persistent vomiting or other new or concerning symptoms. Prescriptions: New prednisone 10 mg tablets,dose pack See Rx Instructions .ROUTE .COMPLEX Qty: 15 RF: 0 albuterol sulfate 90 mcg/actuation HFA aerosol inhaler 2 puff INHALATION Q4-6H PRN (Reason: shortness of breath or wheezing) Qty: 8 RF: 0 Qvar RediHaler 80 mcg/actuation HFA aerosol breath activated 1 puff INHALATION BID Qty: 10.6 RF: 0 albuterol sulfate 1.25 mg/3 mL solution for nebulization 2.5 mg INHALATION Q4-6H PRN (Reason: shortness of breath or wheezing) Qty: 75 RF: 0 No Action ipratropium-albuterol 0.5 mg-3 mg(2.5 mg base)/3 mL Solution For Nebulization 3 ml Inhalation QID PRN (Reason: Shortness Of Breath) RF: 0 ProAir HFA 90 mcg/actuation Hfa Aerosol Inhaler 1 puff Inhalation PRN PRN (Reason: Shortness Of Breath) RF: 0 Stand Alone Forms: Work Release Note
== END 2018-07-01 16:17 | disposition home or self-care (01) ==
PROVIDERS: Emergency Provider Emergency Medicine
DX: J44.1 Chronic obstructive pulmonary disease with (acute) exacerbation (principal)
CPT/HCPCS: 36591; 36600; 71046; 80053; 81003; 82805; 83605; 85025; 87400; 93005; 94640; 96374; 96375; 99283; 99285; J2060; J2930; J7613

== ENCOUNTER 2018-10-10 10:21 | Emergency (ER) | payer OTHER, MEDICAID, SELFPAY ==
[2018-10-10 10:25] VITALS: BP 123/89; PULSE 81; RESP 18; TEMP 36.4; O2SAT 97; BMI 33.6
--- NOTE | 2018-10-10 10:32 | DI.RAD.S_ITS ---
PROCEDURE: XR CHEST 2V INDICATIONS: shortness of breath TECHNIQUE: 2 views of the chest were acquired. COMPARISON: [facility], CR, XR CHEST 2V, 07/01/2018, 13:20. [facility], CR, XR CHEST 1V, 05/17/2018, 12:14. FINDINGS: Surgical changes and devices: None. Lungs and pleura: Lungs are clear. No pleural effusions or pneumothorax. Mediastinum: Mediastinal contours are normal. Heart size is normal. Bones and chest wall: No suspicious bony abnormalities. Soft tissues appear unremarkable. IMPRESSION: Normal for age, source of current shortness of breath symptoms is not seen. Dictated by: Osmany Barone M.D. on 10/10/2018 at 11:00 Approved by: Osmany Barone M.D. on 10/10/2018 at 11:00
[2018-10-10 10:56] LABS: Add Manual Diff / Slide Review NO; Basophils Absolute Auto 100 /uL (0-100); Basophils Percent Auto 0.9 % (0-2); Eosinophils Absolute Auto 300 /uL (0-450); Eosinophils Percent Auto 3.3 % (2-4); Hematocrit 43.2 % (36-46); Hemoglobin 15.3 g/dL (12.0-16.0); Lymphocytes Absolute Auto 2400 /uL (1100-4500); Lymphocytes Percent Auto 28.1 % (25-40); Mean Corpuscular HGB Conc 35.4 % (30-36); Mean Corpuscular Volume 93.2 fL (80-100); Monocytes Absolute Auto 500 /uL (0-900); Neutrophils Absolute Auto 5300 /uL (1500-7000); Neutrophils Percent Auto 61.7 % (50-75); Platelet Count 189 X10^3/uL (150-400); Red Blood Cell Count 4.63 X10^6/uL (4.0-5.2); Red Cell Distribution Width 13.2 % (11.6-14.8); White Blood Cell Count 8.5 X10^3/uL (4.5-11.0)
[2018-10-10 11:07] LABS: Alanine Aminotransferase 18 IU/L (9-52); Albumin 4.1 g/dL (3.5-5.0); Albumin Globulin Ratio 1.4 (1.0-2.8); Alkaline Phosphatase 65 U/L (38-126); Aspartate Aminotransferase 21 IU/L (14-36); BUN Creatinine Ratio 16.7 (6-22); Bilirubin Total 0.6 mg/dL (0.2-1.3); Blood Urea Nitrogen 10 mg/dL (7-17); Carbon Dioxide 28 mmol/L (22-32); Chloride 106 mmol/L (98-107); Estimated Glomerular Filt Rate > 60.0 mL/min (>60); Glucose 111 mg/dL (70-100); HEMOLYSIS < 15 (0-50); Lactate (Lactic Acid) 0.7 mmol/L (0.7-2.1); Potassium 3.6 mmol/L (3.4-5.1); Sodium 142 mmol/L (137-145); Total Protein 7.1 g/dL (6.3-8.2)
[2018-10-10 11:13] VITALS: PULSE 80; O2SAT 96
[2018-10-10] MEDS: ALBUTEROL/IPRATROPIUM 3 ML AMPUL INH (11:15)
--- NOTE | 2018-10-10 11:37 | ED.URI ---
HPI - URI/Sore Throat General Chief Complaint: Upper Respiratory Symptoms Stated Complaint: Short of breath,can't sleep Time Seen by Provider: 10/10/18 10:51 Source: patient Mode of arrival: ambulatory Limitations: no limitations History of Present Illness HPI Narrative: Patient complains of increasing shortness of breath and cough for the last week but especially the last 3 days. She states that her sister recently had parainfluenza virus, and she may have this, she thinks. Patient states she has been coughing up a variable amounts of sputum, from white frothy to yellowish orange. Patient denies fevers. No chest pain. She does have some pain in her right ribs with breathing and coughing. She denies abdominal pain other than a soreness with coughing. She states she has had some nausea and vomiting and also had an episode of diarrhea today. She uses inhalers and nebulizer treatments home, but has not had any improvement with these. She is not on home O2. Patient has a history of tobacco abuse and COPD. No other complaints at this time. Related Data Home Medications Medication Instructions Recorded Confirmed ipratropium-albuterol 3 ml INHALATION QID PRN 05/17/18 07/01/18 albuterol sulfate 2.5 mg INHALATION Q4-6H PRN 10/10/18 10/10/18 Previous Rx's Medication Instructions Recorded albuterol sulfate 2 puff INHALATION Q4-6H PRN #8 gram 07/01/18 beclomethasone dipropionate [Qvar 1 puff INHALATION BID #10.6 gram 07/01/18 RediHaler] acetaminophen-codeine 1 tab PO Q4-6H PRN #10 tab 10/10/18 [Tylenol-Codeine #3] azithromycin [Zithromax Z-Mic] See Rx Instructions .ROUTE 10/10/18 .COMPLEX #6 tab prednisone 60 mg PO DAILY #15 tab 10/10/18 Allergies Allergy/AdvReac Type Severity Reaction Status Date / Time Penicillins Allergy Intermediate Hives Verified 05/17/18 10:42 Review of Systems Constitutional Denies chills, Denies fever(s), Denies lethargy and Denies weakness Eyes Denies change in vision, Denies eye discharge, Denies irritation and Denies loss of vision ENT Ears, Nose, Mouth, and Throat: Denies change in voice, Denies neck pain and Denies sore throat Cardiovascular Denies chest pain, Denies irregular heart rhythm, Denies lightheadedness, Denies palpitations, Reports dyspnea and Denies orthopnea Respiratory Reports cough, Reports dyspnea and Reports wheezing Gastrointestinal Gastrointestinal: Denies abdominal pain, Denies change in bowel habits, Denies diarrhea, Denies nausea and Denies vomiting Genitourinary Denies hematuria, Denies flank pain, Denies urinary incontinence and Denies urinary urgency Musculoskeletal Denies neck pain Integumentary/Breasts Denies pruritus, Denies erythema, Denies rash and Denies wounds Neurologic Denies confusion, Denies loss of vision and Denies weakness Psychiatric Denies anxiety, Denies confusion, Denies depression, Denies homicidal ideation and Denies suicidal ideation Endocrine Denies palpitations Hematologic/Lymphatic Denies easy bruising Allergic/Immunologic Reports wheezing [facility] Medical History COPD (chronic obstructive pulmonary disease) (Chronic) Migraine (Chronic) Status post tubal ligation (Resolved) Surgical History Status post partial thyroidectomy (Resolved) Family History (Updated 05/17/18 @ 12:37 by Adina Perez PA-C) Other No significant family history Social History Smoking Status: Current every day smoker Family History Other No significant family history Social History Smoking Status: Current every day smoker Exam Narrative Exam Narrative: Patient is anxious and in mild respiratory distress. She has fits of dry coughing intermittently. Initial Vital Signs Initial Vital Signs: Vital Signs Temperature 97.6 F 10/10/18 10:25 Pulse Rate 81 10/10/18 10:25 Respiratory Rate 18 10/10/18 10:25 Blood Pressure 123/89 10/10/18 10:25 Pulse Oximetry 97 10/10/18 10:25 Const General: cooperative and well developed Nutritional Appearance: well nourished Orientation: alert, awake, oriented x3 and not confused HENAZ Head: normocephalic and atraumatic Ears: external ears normal and TM's normal bilaterally Nose: external nose normal and No nasal discharge Face and sinus: sinuses nontender, face symmetric, no sinus tenderness and No dry mucous membranes Mouth: oral mucosae normal and moist mucous membranes Teeth and gingiva: dentition normal Eyes General: appearance normal, both eyes and all related structures Eyelids: eyelids normal Conjunctivae: conjunctivae normal Sclera: sclerae normal Pupils: PERRL EOM: EOM intact bilaterally Neck Neck: normal visual inspection, trachea midline, No lymphadenopathy, No midline deformity and No JVD Lymphatic: No lymphedema Chest Chest: normal inspection of the chest Resp Effort & Inspection: normal respiratory effort, able to speak in complete sentences, respiratory distress (Mild) and no use of accessory muscles Auscultation: clear to auscultation bilaterally, no rales, no rhonchi and wheezes (Faint, diffuse bilateral) Other: Patient has intermittent fits of dry coughing. Cardio Rate: regular rate Rhythm: regular rhythm Heart Sounds: no click, no gallops, no murmurs and no rubs Pulses: normal peripheral pulses GI Inspection: non-distended Palpation: soft, no hepatosplenomegaly, No guarding, No pulsatile mass and No tender Back/Spine/Pelvis Back: No CVA tenderness Cervical Spine: cervical ROM normal and No pain with cervical ROM Thoracic/Lumbar Spine: thoracic and lumbar spine normal to inspection Skin General: no rashes or lesions noted, No jaundice and No petechiae Neuro General: alert, oriented x3, gait normal and no focal motor deficits Speech: speech normal Extrem General: full ROM, no clubbing, cyanosis or edema, no pedal edema and no calf tenderness Psych Appearance: well kempt Mental Status: mental status grossly normal Attitude: cooperative Thought Content: normal and suicidality Judgment: judgment good Course Course Narrative: Patient was treated with a DuoNeb, IV fluids, IV Decadron, morphine, and Toradol. She was sent for a chest x-ray. A viral panel was also obtained. Both of the above were negative. She was treated for bacterial bronchitis, given her productive cough and risk factors. She was given a prescription for antibiotics and for steroids to take at home. We have discussed home management of the symptoms, as well as the usual indications for return. Patient was overall improved on re-evaluation. Orders Ordered: ED Orders 10/10/18 13:38 Respiratory Panel (Film Array) Stat Discontinued Medications Albuterol/Ipratropium (Duoneb) 3 ml INH NOW ONE Stop: 10/10/18 11:11 Last Admin: 10/10/18 11:15 Dose: 3 ml Dexamethasone 20 mg/ Sodium (Chloride) 52 mls @ 208 mls/hr IV NOW ONE Stop: 10/10/18 11:37 Last Infusion: 10/10/18 12:04 Dose: 0 mls/hr Admin: 10/10/18 11:48 Dose: 208 mls/hr Sodium Chloride (Normal Saline 0.9%) 1,000 mls @ 1,000 mls/hr IV BOLUS ONE Stop: 10/10/18 12:35 Last Infusion: 10/10/18 12:41 Dose: 0 mls/hr Admin: 10/10/18 11:49 Dose: 1,000 mls/hr Ketorolac Tromethamine (Toradol) 30 mg IV NOW ONE Stop: 10/10/18 11:37 Last Admin: 10/10/18 11:48 Dose: 30 mg Morphine Sulfate (Morphine) 4 mg IV NOW ONE Stop: 10/10/18 11:37 Last Admin: 10/10/18 11:48 Dose: 4 mg Vital Signs - 8 hr 10/10/18 14:01 10/10/18 15:00 Pulse Rate 80 79 Respiratory Rate 20 22 Blood Pressure [Right Arm] 131/89 145/97 H Pulse Oximetry 96 95 MDM - URI/Sore Throat Medical Records Attestation: I reviewed the patient's medical records. Lab Data Attestation: I reviewed the patient's lab results. Result diagrams: 10/10/18 10:45 10/10/18 10:45 Lab Results 10/10/18 10/10/18 10/10/18 Range/Units 10:45 10:45 10:45 WBC 8.5 (4.5-11.0) X10^3/uL RBC 4.63 (4.0-5.2) X10^6/uL Hgb 15.3 (12.0-16.0) g/dL Hct 43.2 (36-46) % MCV 93.2 (80-100) fL MCH 33.0 (26-34) PG MCHC 35.4 (30-36) % RDW 13.2 (11.6-14.8) % Plt Count 189 (150-400) X10^3/uL Neut % (Auto) 61.7 (50-75) % Lymph % (Auto) 28.1 (25-40) % [place] % (Auto) 6.0 (3-14) % Eos % (Auto) 3.3 (2-4) % Baso % (Auto) 0.9 (0-2) % Neut # (Auto) 5300 (1199-3442) /uL Lymph # (Auto) 2400 (5010-1637) /uL [place] # (Auto) 500 (0-900) /uL Eos # (Auto) 300 (0-450) /uL Baso # (Auto) 100 (0-100) /uL Sodium 142 (137-145) mmol/L Potassium 3.6 (3.4-5.1) mmol/L Chloride 106 (98-107) mmol/L Carbon Dioxide 28 (22-32) mmol/L BUN 10 (7-17) mg/dL Creatinine 0.60 (0.52-1.04) mg/dL Estimated GFR > 60.0 (>60) mL/min BUN/Creatinine Ratio 16.7 (6-22) Glucose 111 H (70-100) mg/dL Lactate 0.7 (0.7-2.1) mmol/L Calcium 9.0 (8.4-10.2) mg/dL Total Bilirubin 0.6 (0.2-1.3) mg/dL AST 21 (14-36) IU/L ALT 18 (9-52) IU/L Alkaline Phosphatase 65 (38-126) U/L Total Protein 7.1 (6.3-8.2) g/dL Albumin 4.1 (3.5-5.0) g/dL Globulin 3.0 (1.7-4.1) g/dL Albumin/Globulin Ratio 1.4 (1.0-2.8) Chlamy pneumoniae PCR (Not Detect) Adenovirus (PCR) (Not Detect) B.parapertussis DNA PCR (Not Detect) Coronavirus OC43 (PCR) (Not Detect) Coronavirus HKU1 (PCR) (Not Detect) Coronavirus 229E (PCR) (Not Detect) Coronavirus NL63 (PCR) (Not Detect) Human Metapneumovir PCR (Not Detect) Influenza Type A (PCR) (Not Detect) Influenza Type B (PCR) (Not Detect) M. pneumoniae (PCR) (Not Detect) Parainfluenza 1 (PCR) (Not Detect) Parainfluenza 2 (PCR) (Not Detect) Parainfluenza 3 (PCR) (Not Detect) Parainfluenza 4 (PCR) (Not Detect) RSV (PCR) (Not Detect) Entero/Rhino (PCR) (Not Detect) 10/10/18 Range/Units 13:38 WBC (4.5-11.0) X10^3/uL RBC (4.0-5.2) X10^6/uL Hgb (12.0-16.0) g/dL Hct (36-46) % MCV (80-100) fL MCH (26-34) PG MCHC (30-36) % RDW (11.6-14.8) % Plt Count (150-400) X10^3/uL Neut % (Auto) (50-75) % Lymph % (Auto) (25-40) % [place] % (Auto) (3-14) % Eos % (Auto) (2-4) % Baso % (Auto) (0-2) % Neut # (Auto) (3918-2777) /uL Lymph # (Auto) (7462-1522) /uL [place] # (Auto) (0-900) /uL Eos # (Auto) (0-450) /uL Baso # (Auto) (0-100) /uL Sodium (137-145) mmol/L Potassium (3.4-5.1) mmol/L Chloride (98-107) mmol/L Carbon Dioxide (22-32) mmol/L BUN (7-17) mg/dL Creatinine (0.52-1.04) mg/dL Estimated GFR (>60) mL/min BUN/Creatinine Ratio (6-22) Glucose (70-100) mg/dL Lactate (0.7-2.1) mmol/L Calcium (8.4-10.2) mg/dL Total Bilirubin (0.2-1.3) mg/dL AST (14-36) IU/L ALT (9-52) IU/L Alkaline Phosphatase (38-126) U/L Total Protein (6.3-8.2) g/dL Albumin (3.5-5.0) g/dL Globulin (1.7-4.1) g/dL Albumin/Globulin Ratio (1.0-2.8) Chlamy pneumoniae PCR Not detected (Not Detect) Adenovirus (PCR) Not detected (Not Detect) B.parapertussis DNA PCR Not detected (Not Detect) Coronavirus OC43 (PCR) Not detected (Not Detect) Coronavirus HKU1 (PCR) Not detected (Not Detect) Coronavirus 229E (PCR) Not detected (Not Detect) Coronavirus NL63 (PCR) Not detected (Not Detect) Human Metapneumovir PCR Not detected (Not Detect) Influenza Type A (PCR) Not detected (Not Detect) Influenza Type B (PCR) Not detected (Not Detect) M. pneumoniae (PCR) Not detected (Not Detect) Parainfluenza 1 (PCR) Not detected (Not Detect) Parainfluenza 2 (PCR) Not detected (Not Detect) Parainfluenza 3 (PCR) Not detected (Not Detect) Parainfluenza 4 (PCR) Not detected (Not Detect) RSV (PCR) Not detected (Not Detect) Entero/Rhino (PCR) Not detected (Not Detect) Imaging Data Chest x-ray: Radiologist's impression: PROCEDURE: XR CHEST 2V INDICATIONS: shortness of breath TECHNIQUE: 2 views of the chest were acquired. COMPARISON: [facility], XR CHEST 2V, 07/01/2018, 13:20. [facility], XR CHEST 1V, 05/17/2018, 12:14. FINDINGS: Surgical changes and devices: None. Lungs and pleura: Lungs are clear. No pleural effusions or pneumothorax. Mediastinum: Mediastinal contours are normal. Heart size is normal. Bones and chest wall: No suspicious bony abnormalities. Soft tissues appear unremarkable. IMPRESSION: Normal for age, source of current shortness of breath symptoms is not seen. Dictated by: Osmany Barone M.D. on 10/10/2018 at 11:00 Approved by: Osmany Barone M.D. on 10/10/2018 at 11:00 Discharge Plan Departure Patient Disposition: Home Clinical Impression: Bronchitis, Acute exacerbation of chronic obstructive pulmonary disease (COPD) Discharge Date/Time: 10/10/18 16:40 Instructions: DI for Chronic Obstructive Pulmonary Disease, DI for Acute Bronchitis Activity Restrictions/Additional Instructions: Your respiratory panel and chest x-ray looked good. There is no evidence of pneumonia at this time. You will be treated with antibiotics for bronchitis, as well as with steroids to help with your COPD exacerbation. Prescriptions: New azithromycin [Zithromax Z-Mic] 250 mg tablet See Rx Instructions .ROUTE .COMPLEX Qty: 6 RF: 0 prednisone 20 mg tablet 60 mg PO DAILY Qty: 15 RF: 0 acetaminophen-codeine [Tylenol-Codeine #3] 300-30 mg tablet 1 tab PO Q4-6H PRN (Reason: pain) Qty: 10 RF: 0 No Action ipratropium-albuterol 0.5 mg-3 mg(2.5 mg base)/3 mL Solution For Nebulization 3 ml Inhalation QID PRN (Reason: Shortness Of Breath) RF: 0 albuterol sulfate 2.5 mg /3 mL (0.083 %) Solution For Nebulization 2.5 mg INHALATION Q4-6H PRN (Reason: Shortness Of Breath) RF: 0 albuterol sulfate 90 mcg/actuation HFA aerosol inhaler 2 puff INHALATION Q4-6H PRN (Reason: shortness of breath or wheezing) Qty: 8 RF: 0 Qvar RediHaler 80 mcg/actuation HFA aerosol breath activated 1 puff INHALATION BID Qty: 10.6 RF: 0 Referrals: [facility] [Provider Group]
[2018-10-10] MEDS: MORPHINE 4 MG/ML INJ IV (11:48)
[2018-10-10] MEDS: DEXAMETHASONE 20 MG in SODIUM CHLORIDE 0.9% 50 ML 208 ML IV (11:48)
[2018-10-10] MEDS: KETOROLAC 60 MG/2 ML VIAL 30 MG IV (11:48)
[2018-10-10] MEDS: SODIUM CHLORIDE 0.9% 1,000 ML 1000 ML IV (11:49)
[2018-10-10 12:00] VITALS: BP 134/88; PULSE 66; RESP 12; O2SAT 96
[2018-10-10 14:01] VITALS: BP 131/89; PULSE 80; RESP 20; O2SAT 96
[2018-10-10 14:56] LABS: Adenovirus Not Detected (Not Detect); Bordetella pertussis Not Detected (Not Detect); Chlamydophila pneumoniae Not Detected (Not Detect); Coronavirus 229E Not Detected (Not Detect); Coronavirus HKU1 Not Detected (Not Detect); Coronavirus NL 63 Not Detected (Not Detect); Coronavirus OC43 Not Detected (Not Detect); Human Metapneumovirus Not Detected (Not Detect); Human Rhinovirus/Enterovirus Not Detected (Not Detect); Influenza A Not Detected (Not Detect); Influenza B Not Detected (Not Detect); Mycoplasma pneumoniae Not Detected (Not Detect); Parainfluenza Virus 1 Not Detected (Not Detect); Parainfluenza Virus 2 Not Detected (Not Detect); Parainfluenza Virus 3 Not Detected (Not Detect); Parainfluenza Virus 4 Not Detected (Not Detect); Respiratory Syncytial Virus Not Detected (Not Detect)
[2018-10-10 15:00] VITALS: BP 145/97; PULSE 79; RESP 22; O2SAT 95
== END 2018-10-10 16:40 | disposition home or self-care (01) ==
PROVIDERS: Emergency Provider Emergency Medicine
DX: J44.1 Chronic obstructive pulmonary disease with (acute) exacerbation (principal)
CPT/HCPCS: 36415; 36591; 71046; 80053; 83605; 85025; 87633; 93005; 94150; 94640; 96361; 96374; 96375; 99283; 99284; J1100; J1885; J2270

== ENCOUNTER 2018-12-25 15:31 | Emergency (ER) | payer OTHER, MEDICAID, SELFPAY ==
[2018-12-25 15:52] VITALS: BP 134/98; PULSE 99; RESP 20; O2SAT 97; BMI 33.7
[2018-12-25 16:41] LABS: Add Manual Diff / Slide Review NO; Basophils Absolute Auto 100 /uL (0-100); Basophils Percent Auto 0.7 % (0-2); Eosinophils Absolute Auto 200 /uL (0-450); Eosinophils Percent Auto 2.9 % (2-4); Hematocrit 44.2 % (36-46); Hemoglobin 14.9 g/dL (12.0-16.0); Lymphocytes Absolute Auto 2500 /uL (1100-4500); Lymphocytes Percent Auto 31.5 % (25-40); Mean Corpuscular HGB Conc 33.6 % (30-36); Mean Corpuscular Hemoglobin 31.9 PG (26-34); Mean Corpuscular Volume 94.8 fL (80-100); Monocytes Absolute Auto 600 /uL (0-900); Monocytes Percent Auto 7.5 % (3-14); Neutrophils Absolute Auto 4500 /uL (1500-7000); Neutrophils Percent Auto 57.4 % (50-75); Platelet Count 203 X10^3/uL (150-400); Red Blood Cell Count 4.66 X10^6/uL (4.0-5.2); Red Cell Distribution Width 13.5 % (11.6-14.8); White Blood Cell Count 7.9 X10^3/uL (4.5-11.0)
[2018-12-25 17:06] LABS: Prothrombin Time 11.8 SECONDS (10.1-12.7)
[2018-12-25 17:09] LABS: PTT Partial Thromboplastin Tim 33 SECONDS (26.4-36.2)
[2018-12-25 17:10] LABS: Alanine Aminotransferase 16 IU/L (9-52); Albumin 4.5 g/dL (3.5-5.0); Albumin Globulin Ratio 1.4 (1.0-2.8); Alkaline Phosphatase 67 U/L (38-126); Aspartate Aminotransferase 21 IU/L (14-36); BUN Creatinine Ratio 18.3 (6-22); Bilirubin Total 0.7 mg/dL (0.2-1.3); Blood Urea Nitrogen 11 mg/dL (7-17); Calcium 9.2 mg/dL (8.4-10.2); Carbon Dioxide 25 mmol/L (22-32); Chloride 107 mmol/L (98-107); Estimated Glomerular Filt Rate > 60.0 mL/min (>60); Globulin 3.3 g/dL (1.7-4.1); Glucose 103 mg/dL (70-100); HEMOLYSIS < 15 (0-50); Lipase 46 U/L (23-300); Potassium 3.2 mmol/L (3.4-5.1); Sodium 143 mmol/L (137-145); Total Protein 7.8 g/dL (6.3-8.2)
[2018-12-25] MEDS: SODIUM CHLORIDE 0.9% 1,000 ML 1000 ML IV (18:17)
[2018-12-25] MEDS: ONDANSETRON 4 MG/2 ML INJ IV (18:17)
[2018-12-25] MEDS: MORPHINE 4 MG/ML INJ IV ×2 (18:17→19:28)
--- NOTE | 2018-12-25 18:23 | DI.CT.S_ITS ---
PROCEDURE: CT ABDOMEN PELVIS W CON INDICATIONS: abd pain TECHNIQUE: After the administration of intravenous contrast, 5 mm thick sections acquired from the diaphragm to the symphysis. 5 mm coronal and sagittal reformats were acquired. For radiation dose reduction, the following was used: automated exposure control, adjustment of mA and/or kV according to patient size. COMPARISON: None. FINDINGS: Image quality: Excellent. ABDOMEN: Lung bases: Lung bases are clear. Heart size is normal. Solid organs: Liver is normal in size and enhancement. Gallbladder is within normal limits. Biliary system is non dilated. Pancreas enhances normally. Spleen is normal in size and enhancement. No adrenal nodules. Kidneys demonstrate normal size and enhancement, without hydronephrosis. 3 mm nonobstructing stone noted in the inferior pole of the right kidney. 2 mm nonobstructing stone in the midpole of the left kidney. 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 Peritoneum and bowel: Bowel loops demonstrate normal wall thickness and caliber. No free fluid or air. The appendix is normal. Nodes and vessels: No retroperitoneal or mesenteric adenopathy by size criteria. Aorta and inferior vena cava are normal in size. Miscellaneous: Small fat-containing umbilical hernia. PELVIS: Genitourinary: Bladder wall thickness is normal. 4.2 cm maximum diameter left adnexal region cyst. Miscellaneous: No inguinal hernias or adenopathy. Bones: No suspicious bony lesions. No vertebral body compression fractures. IMPRESSION: 1. 4.2 cm left adnexal cyst. 2. Small, bilateral nonobstructing renal stones. 3. Hepatic steatosis 4. No free fluid or free air. 5. No dilated loops of bowel. 6. The appendix is normal. Dictated by: Ivette Keane MD, PhD on 12/25/2018 at 19:23 Approved by: Ivette Keane MD, PhD on 12/25/2018 at 19:26
[2018-12-25 18:36] VITALS: BP 145/94; PULSE 81; RESP 22; O2SAT 98
[2018-12-25 18:59] LABS: Bacteria Urine None Seen; RBC Urine None Seen (0-5/HPF); WBC Urine None Seen (0-5/HPF)
[2018-12-25 19:04] LABS: Pregnancy Test Urine Negative (Negative)
[2018-12-25 19:08] LABS: Calcium Oxalate Crystals Urine Moderate; Mucus Urine 1+ (Negative); Squamous Epithelial Cell Urine 0-1 /HPF (0-5/HPF)
[2018-12-25 19:09] LABS: Culture Indicated Urine Specimen Cultured
[2018-12-25] MEDS: KETOROLAC 60 MG/2 ML VIAL 30 MG IV (19:28)
--- NOTE | 2018-12-25 19:32 | DI.US.S_ITS ---
PROCEDURE: US PELVIC COMPLETE INDICATIONS: PAIN; LEFT OVARIAN CYST TECHNIQUE: Real-time scanning was performed of the pelvic organs, with image documentation. Additional endovaginal scanning was necessary due to incomplete visualization of the adnexal and endometrial structures by transabdominal scanning. COMPARISON: [facility], CT, CT ABDOMEN PELVIS W CON, 12/25/2018, 18:59. FINDINGS: Transabdominal scanning: Limited scanning through the kidneys shows no hydronephrosis. No pathologic free abdominal or pelvic fluid. Endovaginal scanning: Uterus: Uterus is normal in size at 6.8 x 4.5 x 5.5 cm. The endometrium measures 7.6 mm in combined thickness. Ovaries: Right adnexa measures 2.8 x 1.2 x 2.0 cm. Right adnexal sonographically normal. Left adnexa measures 4.5 x 3.0 x 3.7 cm. There is a 4.1 x 2.9 x 2.8 cm simple left ovarian cyst. Doppler evaluation demonstrates normal vascular flow in the adnexa. IMPRESSION: 1. Uterus is sonographically normal. 2. Right adnexal sonographically normal. 3. 4.1 x 2.9 x 2.8 cm simple left ovarian cyst. Recommend followup imaging in 6 weeks to with resolution of the cyst. 4. No evidence of ovarian torsion. Please note intermittent ovarian torsion cannot be excluded by ultrasound. Dictated by: Ivette Keane MD, PhD on 12/25/2018 at 20:55 Approved by: Ivette Keane MD, PhD on 12/25/2018 at 20:59
[2018-12-25 20:48] VITALS: BP 123/98; PULSE 81; RESP 18; O2SAT 97
[2018-12-25] MEDS: HYDROCODONE/ACET 5/325 TABLET 2 TAB PO (21:30)
--- NOTE | 2018-12-25 21:44 | ED.ABDPAIN ---
HPI - Abdominal Pain <Annamarie Peoples, WINDOWS DESKTOP ENGINEER-BC - Last Filed: 12/25/18 22:00> General Chief Complaint: Abdominal Pain Stated Complaint: sharp stomach pain goes to back Time Seen by Provider: 12/25/18 17:27 Source: patient Mode of arrival: ambulatory Limitations: no limitations History of Present Illness HPI narrative: The patient is a 43-year-old female current smoker with history of COPD who presents with a chief complaint of abdominal pain. She states she thinks she might be having a kidney stone. She also feels like she is constipated and felt like she had a pop when she was having a bowel movement several days ago. She states she has not had a bowel movement several days. She states that the pain is across the left side of her abdomen, and radiates down to her lower left quadrant. She states that the pain is so severe, she cannot breathe due to the pain. She reports some nausea, sweats affiliate with the pain. No chest pain or shortness of breath. She denies any previous abdominal surgeries, but then admits to tubal ligation. She denies any dysuria urgency or frequency. This pain started several weeks ago, and has gotten worse recently. Related Data Home Medications Medication Instructions Recorded Confirmed albuterol sulfate 2.5 mg INHALATION Q4-6H PRN 10/10/18 12/25/18 citalopram 20 mg PO DAILY 12/25/18 12/25/18 diazepam 2 mg PO BID PRN 12/25/18 12/25/18 fluticasone furoate-vilanterol 1 puff INHALATION DAILY 12/25/18 12/25/18 [Breo Ellipta] fluticasone propion-salmeterol 1 puff INHALATION BID 12/25/18 12/25/18 nicotine 1 patch TOPICAL DAILY 12/25/18 12/25/18 quetiapine 25 mg PO DAILY 12/25/18 12/25/18 sumatriptan succinate 1 tab PO 1-2XD 12/25/18 12/25/18 trazodone 100 mg PO DAILY 12/25/18 12/25/18 Previous Rx's Medication Instructions Recorded albuterol sulfate 2 puff INHALATION Q4-6H PRN #8 gram 07/01/18 hydrocodone-acetaminophen [[place]] 1 tab PO Q4-6H PRN #10 tab 12/25/18 ketorolac 10 mg PO TID PRN #20 tab 12/25/18 ondansetron 4 mg PO Q6H PRN #30 tab 12/25/18 Allergies Allergy/AdvReac Type Severity Reaction Status Date / Time Penicillins Allergy Intermediate Hives Verified 12/25/18 15:51 Review of Systems <RICKY Mckeon - Last Filed: 12/25/18 22:00> Review of Systems GENERAL: Denies chills, fatigue, malaise, fever, sweats. HEENT: Denies sinus pain, ear pain, sore throat, difficulty swallowing, dizziness. RESPIRATORY: Denies dyspnea, cough, wheezing, hemoptysis, sputum. CARDIOVASCULAR: Denies chest pain, palpitations, orthopnea, edema, GASTROINTESTINAL: See HPI : Denies dysuria, frequency, incontinence, hematuria, urinary retention. MUSCULOSKELETAL: denies weakness, joint pain, or bony pain SKIN: Denies rash, skin lesions, or other NEUROLOGIC: Denies weakness, headache, numbness, change in speech, confusion, seizures, incoordination. PSYCHIATRIC: No concerning psychosocial issues. 12 point review of systems is negative except for those stated above PFSH <RICKY Mckeon - Last Filed: 12/25/18 22:00> Medical History COPD (chronic obstructive pulmonary disease) (Chronic) Migraine (Chronic) Status post tubal ligation (Resolved) Surgical History Status post partial thyroidectomy (Resolved) Family History Other No significant family history Social History Smoking Status: Current every day smoker Family History Other No significant family history Social History Smoking Status: Current every day smoker Exam <RICKY Mckeon - Last Filed: 12/25/18 22:00> Narrative Exam Narrative: GENERAL: This is a well-nourished, well-developed patient, teary. HEAD: Atraumatic. Normocephalic. No temporal or scalp tenderness. EYES: Pupils equal round and reactive. Extraocular motions intact. No scleral icterus. No injection or drainage. ENT: Nose without bleeding, purulent drainage or septal hematoma. Throat without erythema, tonsillar hypertrophy or exudate. Uvula midline. Airway patent. NECK: Trachea midline. No JVD or lymphadenopathy. Supple, nontender, no meningeal signs. CARDIOVASCULAR: Regular rate and rhythm RESPIRATORY: Breath sounds equal bilaterally. Diffuse expiratory wheezes bilaterally GASTROINTESTINAL: Abdomen soft, active bowel sounds all 4 quadrants. Significant tenderness to palpation left lower quadrant, with some guarding. Significant tenderness to palpation periumbilical area with some guarding. Negative Finn sign. EXTREMITIES: No clubbing, cyanosis, or edema. No joint tenderness, effusion, or edema noted. BACK: Nontender without deformity or crepitance. No flank tenderness. NEURO: AOx3. SKIN: No rash or erythema. Initial Vital Signs Initial Vital Signs: Vital Signs Pulse Rate 99 H 12/25/18 15:52 Respiratory Rate 20 12/25/18 15:52 Blood Pressure 134/98 H 12/25/18 15:52 Pulse Oximetry 97 12/25/18 15:52 <Kennedi Fajardo MD - Last Filed: 12/26/18 03:48> Initial Vital Signs Initial Vital Signs: Vital Signs Pulse Rate 99 H 12/25/18 15:52 Respiratory Rate 20 12/25/18 15:52 Blood Pressure 134/98 H 12/25/18 15:52 Pulse Oximetry 97 12/25/18 15:52 Course <RICKY Mckeon - Last Filed: 12/25/18 22:00> Orders Ordered: ED Orders 12/25/18 19:32 US pelvic complete Stat Discontinued Medications Hydrocodone Bitart/Acetaminophen ([place] 5/325) 2 tab PO NOW ONE Stop: 12/25/18 21:06 Last Admin: 12/25/18 21:30 Dose: 2 tab Hydrocodone Bitart/Acetaminophen (Vicodin Prepack) 1 bottle MISC SEEINSTR ONE Stop: 12/25/18 21:39 Last Admin: 12/25/18 22:21 Dose: 1 bottle Sodium Chloride (Normal Saline 0.9%) 1,000 mls @ 1,000 mls/hr IV BOLUS ONE Stop: 12/25/18 18:34 Last Infusion: 12/25/18 21:34 Dose: 1,000 mls/hr Admin: 12/25/18 18:17 Dose: 1,000 mls/hr Ketorolac Tromethamine (Toradol) 30 mg IV NOW ONE Stop: 12/25/18 19:20 Last Admin: 12/25/18 19:28 Dose: 30 mg Ketorolac Tromethamine (Toradol 10mg Prepack) 1 bottle MISC SEEINSTR ONE Stop: 12/25/18 21:39 Last Admin: 12/25/18 22:21 Dose: 1 bottle Morphine Sulfate (Morphine) 4 mg IV NOW ONE Stop: 12/25/18 17:36 Last Admin: 12/25/18 18:17 Dose: 4 mg Morphine Sulfate (Morphine) 4 mg IV NOW ONE Stop: 12/25/18 19:20 Last Admin: 12/25/18 19:28 Dose: 4 mg Ondansetron HCl (Zofran) 4 mg IV NOW ONE Stop: 12/25/18 17:36 Last Admin: 12/25/18 18:17 Dose: 4 mg Ondansetron HCl (Zofran Odt Prepack) 1 bottle MISC SEEINSTR ONE Stop: 12/25/18 21:39 Last Admin: 12/25/18 22:21 Dose: 1 bottle Vital Signs - 8 hr 12/25/18 20:48 12/25/18 22:23 Temperature 99.1 F Pulse Rate 81 72 Respiratory Rate 18 18 Blood Pressure 128/79 Blood Pressure [Right Arm] 123/98 H Pulse Oximetry 97 99 <Kennedi Fajardo MD - Last Filed: 12/26/18 03:48> Orders Ordered: ED Orders 12/25/18 19:32 US pelvic complete Stat Discontinued Medications Hydrocodone Bitart/Acetaminophen ([place] 5/325) 2 tab PO NOW ONE Stop: 12/25/18 21:06 Last Admin: 12/25/18 21:30 Dose: 2 tab Hydrocodone Bitart/Acetaminophen (Vicodin Prepack) 1 bottle MISC SEEINSTR ONE Stop: 12/25/18 21:39 Last Admin: 12/25/18 22:21 Dose: 1 bottle Sodium Chloride (Normal Saline 0.9%) 1,000 mls @ 1,000 mls/hr IV BOLUS ONE Stop: 12/25/18 18:34 Last Infusion: 12/25/18 21:34 Dose: 1,000 mls/hr Admin: 12/25/18 18:17 Dose: 1,000 mls/hr Ketorolac Tromethamine (Toradol) 30 mg IV NOW ONE Stop: 12/25/18 19:20 Last Admin: 12/25/18 19:28 Dose: 30 mg Ketorolac Tromethamine (Toradol 10mg Prepack) 1 bottle MISC SEEINSTR ONE Stop: 12/25/18 21:39 Last Admin: 12/25/18 22:21 Dose: 1 bottle Morphine Sulfate (Morphine) 4 mg IV NOW ONE Stop: 12/25/18 17:36 Last Admin: 12/25/18 18:17 Dose: 4 mg Morphine Sulfate (Morphine) 4 mg IV NOW ONE Stop: 12/25/18 19:20 Last Admin: 12/25/18 19:28 Dose: 4 mg Ondansetron HCl (Zofran) 4 mg IV NOW ONE Stop: 12/25/18 17:36 Last Admin: 12/25/18 18:17 Dose: 4 mg Ondansetron HCl (Zofran Odt Prepack) 1 bottle MISC SEEINSTR ONE Stop: 12/25/18 21:39 Last Admin: 12/25/18 22:21 Dose: 1 bottle Vital Signs - 8 hr 12/25/18 20:48 12/25/18 22:23 Temperature 99.1 F Pulse Rate 81 72 Respiratory Rate 18 18 Blood Pressure 128/79 Blood Pressure [Right Arm] 123/98 H Pulse Oximetry 97 99 MDM - Abdominal Pain <RICKY Mckeon - Last Filed: 12/25/18 22:00> Lab Data Result diagrams: 12/25/18 16:30 12/25/18 16:30 Lab Results 12/25/18 12/25/18 12/25/18 Range/Units 16:30 16:30 16:30 WBC 7.9 (4.5-11.0) X10^3/uL RBC 4.66 (4.0-5.2) X10^6/uL Hgb 14.9 (12.0-16.0) g/dL Hct 44.2 (36-46) % MCV 94.8 (80-100) fL MCH 31.9 (26-34) PG MCHC 33.6 (30-36) % RDW 13.5 (11.6-14.8) % Plt Count 203 (150-400) X10^3/uL Neut % (Auto) 57.4 (50-75) % Lymph % (Auto) 31.5 (25-40) % [place] % (Auto) 7.5 (3-14) % Eos % (Auto) 2.9 (2-4) % Baso % (Auto) 0.7 (0-2) % Neut # (Auto) 4500 (0680-0344) /uL Lymph # (Auto) 2500 (1754-8951) /uL [place] # (Auto) 600 (0-900) /uL Eos # (Auto) 200 (0-450) /uL Baso # (Auto) 100 (0-100) /uL PT 11.8 (10.1-12.7) SECONDS INR 1.0 (0.9-1.3) APTT 33 D (26.4-36.2) SECONDS Sodium 143 (137-145) mmol/L Potassium 3.2 L (3.4-5.1) mmol/L Chloride 107 (98-107) mmol/L Carbon Dioxide 25 (22-32) mmol/L BUN 11 (7-17) mg/dL Creatinine 0.60 (0.52-1.04) mg/dL Estimated GFR > 60.0 (>60) mL/min BUN/Creatinine Ratio 18.3 (6-22) Glucose 103 H (70-100) mg/dL Calcium 9.2 (8.4-10.2) mg/dL Total Bilirubin 0.7 (0.2-1.3) mg/dL AST 21 (14-36) IU/L ALT 16 (9-52) IU/L Alkaline Phosphatase 67 (38-126) U/L Total Protein 7.8 (6.3-8.2) g/dL Albumin 4.5 (3.5-5.0) g/dL Globulin 3.3 (1.7-4.1) g/dL Albumin/Globulin Ratio 1.4 (1.0-2.8) Lipase 46 (23-300) U/L Urine RBC (0-5/HPF) Urine WBC (0-5/HPF) Ur Squamous Epith Cells (0-5/HPF) Calcium Oxalate Crystal Urine Bacteria (None) Urine Mucus (Negative) Ur Culture Indicated? Urine Test (Negative) 12/25/18 12/25/18 Range/Units 17:55 17:55 WBC (4.5-11.0) X10^3/uL RBC (4.0-5.2) X10^6/uL Hgb (12.0-16.0) g/dL Hct (36-46) % MCV (80-100) fL MCH (26-34) PG MCHC (30-36) % RDW (11.6-14.8) % Plt Count (150-400) X10^3/uL Neut % (Auto) (50-75) % Lymph % (Auto) (25-40) % [place] % (Auto) (3-14) % Eos % (Auto) (2-4) % Baso % (Auto) (0-2) % Neut # (Auto) (5753-5282) /uL Lymph # (Auto) (7779-6850) /uL [place] # (Auto) (0-900) /uL Eos # (Auto) (0-450) /uL Baso # (Auto) (0-100) /uL PT (10.1-12.7) SECONDS INR (0.9-1.3) APTT (26.4-36.2) SECONDS Sodium (137-145) mmol/L Potassium (3.4-5.1) mmol/L Chloride (98-107) mmol/L Carbon Dioxide (22-32) mmol/L BUN (7-17) mg/dL Creatinine (0.52-1.04) mg/dL Estimated GFR (>60) mL/min BUN/Creatinine Ratio (6-22) Glucose (70-100) mg/dL Calcium (8.4-10.2) mg/dL Total Bilirubin (0.2-1.3) mg/dL AST (14-36) IU/L ALT (9-52) IU/L Alkaline Phosphatase (38-126) U/L Total Protein (6.3-8.2) g/dL Albumin (3.5-5.0) g/dL Globulin (1.7-4.1) g/dL Albumin/Globulin Ratio (1.0-2.8) Lipase (23-300) U/L Urine RBC None seen (0-5/HPF) Urine WBC None seen (0-5/HPF) Ur Squamous Epith Cells 0-1 /hpf (0-5/HPF) Calcium Oxalate Crystal Moderate H Urine Bacteria None seen (None) Urine Mucus 1+ H (Negative) Ur Culture Indicated? Specimen cultured Urine Test Negative (Negative) Point of care testing: Urine Dip Bedside Urine Glucose Negative Bedside Urine Bilirubin + 1 Bedside Urine Ketone + 15 Urine Specific [place] 1.030 Bedside Urine Occult Blood ++ Bedside Urine Protein + 30 Bedside Urine Urobilinogen +/- 1mg Bedside Urine Nitrite - Negative Bedside Urine Leukocytes +/- 15 Esterase Imaging Data Pelvic ultrasound: Radiologist's impression: [address] [address] Ultrasound Report Signed Patient: Diana Stringer LMR#: [id number] : 1975Acct:[id number] Age/Sex: 43 / FDate of Service: 12/25/18 Loc: ED Accession Number: [id number] Procedure: US pelvic complete Ordering Provider: Annamarie Peoples WINDOWS DESKTOP ENGINEER- PROCEDURE: US PELVIC COMPLETE INDICATIONS: PAIN; LEFT OVARIAN CYST TECHNIQUE: Real-time scanning was performed of the pelvic organs, with image documentation. Additional endovaginal scanning was necessary due to incomplete visualization of the adnexal and endometrial structures by transabdominal scanning. COMPARISON: [facility], CT, CT ABDOMEN PELVIS W CON, 12/25/2018, 18:59. FINDINGS: Transabdominal scanning: Limited scanning through the kidneys shows no hydronephrosis. No pathologic free abdominal or pelvic fluid. Endovaginal scanning: Uterus: Uterus is normal in size at 6.8 x 4.5 x 5.5 cm. The endometrium measures 7.6 mm in combined thickness. Ovaries: Right adnexa measures 2.8 x 1.2 x 2.0 cm. Right adnexal sonographically normal. Left adnexa measures 4.5 x 3.0 x 3.7 cm. There is a 4.1 x 2.9 x 2.8 cm simple left ovarian cyst. Doppler evaluation demonstrates normal vascular flow in the adnexa. IMPRESSION: 1. Uterus is sonographically normal. 2. Right adnexal sonographically normal. 3. 4.1 x 2.9 x 2.8 cm simple left ovarian cyst. Recommend followup imaging in 6 weeks to with resolution of the cyst. 4. No evidence of ovarian torsion. Please note intermittent ovarian torsion cannot be excluded by ultrasound. Dictated by: Ivette Keane MD, PhD on 12/25/2018 at 20:55 Approved by: Ivette Keane MD, PhD on 12/25/2018 at 20:59 CT scan - abdomen: Radiologist's impression: [place] [address] CT Scan Report Signed Patient: Diana Stringer LMR#: [id number] : 1975Acct:[id number] Age/Sex: 43 / FDate of Service: 12/25/18 Loc: ED Accession Number: [id number] Procedure: CT abdomen pelvis w con Ordering Provider: Annamarie Peoples [facility]- PROCEDURE: CT ABDOMEN PELVIS W CON INDICATIONS: abd pain TECHNIQUE: After the administration of intravenous contrast, 5 mm thick sections acquired from the diaphragm to the symphysis. 5 mm coronal and sagittal reformats were acquired. For radiation dose reduction, the following was used: automated exposure control, adjustment of mA and/or kV according to patient size. COMPARISON: None. FINDINGS: Image quality: Excellent. ABDOMEN: Lung bases: Lung bases are clear. Heart size is normal. Solid organs: Liver is normal in size and enhancement. Gallbladder is within normal limits. Biliary system is non dilated. Pancreas enhances normally. Spleen is normal in size and enhancement. No adrenal nodules. Kidneys demonstrate normal size and enhancement, without hydronephrosis. 3 mm nonobstructing stone noted in the inferior pole of the right kidney. 2 mm nonobstructing stone in the midpole of the left kidney. 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 Peritoneum and bowel: Bowel loops demonstrate normal wall thickness and caliber. No free fluid or air. The appendix is normal. Nodes and vessels: No retroperitoneal or mesenteric adenopathy by size criteria. Aorta and inferior vena cava are normal in size. Miscellaneous: Small fat-containing umbilical hernia. PELVIS: Genitourinary: Bladder wall thickness is normal. 4.2 cm maximum diameter left adnexal region cyst. Miscellaneous: No inguinal hernias or adenopathy. Bones: No suspicious bony lesions. No vertebral body compression fractures. IMPRESSION: 1. 4.2 cm left adnexal cyst. 2. Small, bilateral nonobstructing renal stones. 3. Hepatic steatosis 4. No free fluid or free air. 5. No dilated loops of bowel. 6. The appendix is normal. Dictated by: Ivette Keane MD, PhD on 12/25/2018 at 19:23 Approved by: Ivette Keane MD, PhD on 12/25/2018 at 19:26 ECG Data Attestation: I personally reviewed and interpreted this ECG as follows: Interpretation: Sinus rhythm. Ventricular rate 84. ME interval 152. QRS interval 93. No ST elevation or depression noted. No ectopy noted. Viewed by Dr. Sachin JOHNSON Narrative Medical decision making narrative: The patient is a 43-year-old female who presents with chief complaint of abdominal pain that has been going on for the past several weeks, worsening recently. She does state that she is constipated, not having had a bowel movement for several days. She is found have an ovarian cyst on ultrasound and CT, no evidence of current torsion. She did not have any kidney stones on CT scan, however she does have some blood and crystals in her urine, so I believe that she likely recently passed a kidney stone. It is reassuring that she does have any fever or leukocytosis. It is reassuring the she passes a p.o. trial. I discussed doing a pelvic exam with evaluation for pelvic inflammatory disease, but the patient declined as she has not been sexually active in many years and believe she is low risk. Given that she does not have any fever or leukocytosis, I am okay with this plan. I discussed at length that she needs to follow up with PCP as well as her OBGYN. She states understanding. She was given taken packs of Zofran, Lortab, Toradol. I discussed not taking Toradol with any other NSAIDs such as Aleve or ibuprofen. I discussed coming back to the ER for any acute concerns such as significantly worsening pain etc. Patient has no questions or concerns upon discharge. She states she has a plan for follow-up provider. <Kennedi Fajardo MD - Last Filed: 12/26/18 03:48> Lab Data Lab Results 12/25/18 12/25/18 12/25/18 Range/Units 16:30 16:30 16:30 WBC 7.9 (4.5-11.0) X10^3/uL RBC 4.66 (4.0-5.2) X10^6/uL Hgb 14.9 (12.0-16.0) g/dL Hct 44.2 (36-46) % MCV 94.8 (80-100) fL MCH 31.9 (26-34) PG MCHC 33.6 (30-36) % RDW 13.5 (11.6-14.8) % Plt Count 203 (150-400) X10^3/uL Neut % (Auto) 57.4 (50-75) % Lymph % (Auto) 31.5 (25-40) % [place] % (Auto) 7.5 (3-14) % Eos % (Auto) 2.9 (2-4) % Baso % (Auto) 0.7 (0-2) % Neut # (Auto) 4500 (7533-6740) /uL Lymph # (Auto) 2500 (8775-9198) /uL [place] # (Auto) 600 (0-900) /uL Eos # (Auto) 200 (0-450) /uL Baso # (Auto) 100 (0-100) /uL PT 11.8 (10.1-12.7) SECONDS INR 1.0 (0.9-1.3) APTT 33 D (26.4-36.2) SECONDS Sodium 143 (137-145) mmol/L Potassium 3.2 L (3.4-5.1) mmol/L Chloride 107 (98-107) mmol/L Carbon Dioxide 25 (22-32) mmol/L BUN 11 (7-17) mg/dL Creatinine 0.60 (0.52-1.04) mg/dL Estimated GFR > 60.0 (>60) mL/min BUN/Creatinine Ratio 18.3 (6-22) Glucose 103 H (70-100) mg/dL Calcium 9.2 (8.4-10.2) mg/dL Total Bilirubin 0.7 (0.2-1.3) mg/dL AST 21 (14-36) IU/L ALT 16 (9-52) IU/L Alkaline Phosphatase 67 (38-126) U/L Total Protein 7.8 (6.3-8.2) g/dL Albumin 4.5 (3.5-5.0) g/dL Globulin 3.3 (1.7-4.1) g/dL Albumin/Globulin Ratio 1.4 (1.0-2.8) Lipase 46 (23-300) U/L Urine RBC (0-5/HPF) Urine WBC (0-5/HPF) Ur Squamous Epith Cells (0-5/HPF) Calcium Oxalate Crystal Urine Bacteria (None) Urine Mucus (Negative) Ur Culture Indicated? Urine Test (Negative) 12/25/18 12/25/18 Range/Units 17:55 17:55 WBC (4.5-11.0) X10^3/uL RBC (4.0-5.2) X10^6/uL Hgb (12.0-16.0) g/dL Hct (36-46) % MCV (80-100) fL MCH (26-34) PG MCHC (30-36) % RDW (11.6-14.8) % Plt Count (150-400) X10^3/uL Neut % (Auto) (50-75) % Lymph % (Auto) (25-40) % [place] % (Auto) (3-14) % Eos % (Auto) (2-4) % Baso % (Auto) (0-2) % Neut # (Auto) (0296-7499) /uL Lymph # (Auto) (2235-9859) /uL Roane # (Auto) (0-900) /uL Eos # (Auto) (0-450) /uL Baso # (Auto) (0-100) /uL PT (10.1-12.7) SECONDS INR (0.9-1.3) APTT (26.4-36.2) SECONDS Sodium (137-145) mmol/L Potassium (3.4-5.1) mmol/L Chloride (98-107) mmol/L Carbon Dioxide (22-32) mmol/L BUN (7-17) mg/dL Creatinine (0.52-1.04) mg/dL Estimated GFR (>60) mL/min BUN/Creatinine Ratio (6-22) Glucose (70-100) mg/dL Calcium (8.4-10.2) mg/dL Total Bilirubin (0.2-1.3) mg/dL AST (14-36) IU/L ALT (9-52) IU/L Alkaline Phosphatase (38-126) U/L Total Protein (6.3-8.2) g/dL Albumin (3.5-5.0) g/dL Globulin (1.7-4.1) g/dL Albumin/Globulin Ratio (1.0-2.8) Lipase (23-300) U/L Urine RBC None seen (0-5/HPF) Urine WBC None seen (0-5/HPF) Ur Squamous Epith Cells 0-1 /hpf (0-5/HPF) Calcium Oxalate Crystal Moderate H Urine Bacteria None seen (None) Urine Mucus 1+ H (Negative) Ur Culture Indicated? Specimen cultured Urine Test Negative (Negative) Point of care testing: Urine Dip Bedside Urine Glucose Negative Bedside Urine Bilirubin + 1 Bedside Urine Ketone + 15 Urine Specific [place] 1.030 Bedside Urine Occult Blood ++ Bedside Urine Protein + 30 Bedside Urine Urobilinogen +/- 1mg Bedside Urine Nitrite - Negative Bedside Urine Leukocytes +/- 15 Esterase Discharge Plan Departure Patient Disposition: Home Clinical Impression: Bilateral renal stones, Abdominal pain in female Ovarian cyst Qualifiers: Laterality: left Qualified Code(s): N83.202 - Unspecified ovarian cyst, left side Discharge Date/Time: 12/25/18 22:25 Interventions: ED Discharge Assessment Last Done: 12/25/18 22:23 Instructions: DI for Kidney Stones, DI for Ovarian Cyst, DI for Abdominal Pain-Adult Activity Restrictions/Additional Instructions: I have given you pain and nausea medications. Your ultrasound imaging reveals a ovarian cyst as well as stones in her kidneys. The should not be causing pain. However given the blood and crystals in your urine, I believe you have recently passed a stone. This could also be causing pain. Please do not combine the Toradol with any other NSAIDs such as Aleve or ibuprofen. The [place] can be sedating or constipating. Zofran as for nausea. Please come back to the emergency department for any acute concerns such as inability keep down fluids, sudden severe abdominal pain. Your lab work today is reassuring as well as the fact that you do not have a fever. Please follow up with primary care provider in the next few days. Prescriptions: New hydrocodone-acetaminophen [[place]] 5-325 mg tablet 1 tab PO Q4-6H PRN (Reason: pain) Qty: 10 RF: 0 ketorolac 10 mg tablet 10 mg PO TID PRN (Reason: pain) Qty: 20 RF: 0 ondansetron 4 mg tablet,disintegrating 4 mg PO Q6H PRN (Reason: nausea and vomiting) Qty: 30 RF: 0 No Action albuterol sulfate 2.5 mg /3 mL (0.083 %) Solution For Nebulization 2.5 mg INHALATION Q4-6H PRN (Reason: Shortness Of Breath) RF: 0 albuterol sulfate 90 mcg/actuation HFA aerosol inhaler 2 puff INHALATION Q4-6H PRN (Reason: shortness of breath or wheezing) Qty: 8 RF: 0 quetiapine 25 mg tablet 25 mg PO DAILY RF: 0 fluticasone propion-salmeterol 250-50 mcg/dose blister with device 1 puff inhalation BID RF: 0 citalopram 20 mg tablet 20 mg PO DAILY RF: 0 trazodone 100 mg tablet 100 mg PO DAILY RF: 0 Breo Ellipta 100-25 mcg/dose blister with device 1 puff inhalation DAILY RF: 0 sumatriptan succinate 100 mg Tablet 1 tab PO 1-2XD RF: 0 diazepam 2 mg tablet 2 mg PO BID PRN (Reason: Anxiety) RF: 0 nicotine 1 patch topical DAILY RF: 0
--- NOTE | 2018-12-25 21:49 | ED_ITS ---
HPI - Abdominal Pain <Annamarie Peoples, OPERATIONS PROJECT MANAGER-BC - Last Filed: 12/25/18 22:00> General Chief Complaint: Abdominal Pain Stated Complaint: sharp stomach pain goes to back Time Seen by Provider: 12/25/18 17:27 Source: patient Mode of arrival: ambulatory Limitations: no limitations History of Present Illness HPI narrative: The patient is a 43-year-old female current smoker with history of COPD who presents with a chief complaint of abdominal pain. She states she thinks she might be having a kidney stone. She also feels like she is constipated and felt like she had a pop when she was having a bowel movement several days ago. She states she has not had a bowel movement several days. She states that the pain is across the left side of her abdomen, and radiates down to her lower left quadrant. She states that the pain is so severe, she cannot breathe due to the pain. She reports some nausea, sweats affiliate with the pain. No chest pain or shortness of breath. She denies any previous abdominal surgeries, but then admits to tubal ligation. She denies any dysuria urgency or frequency. This pain started several weeks ago, and has gotten worse recently. Related Data Home Medications Medication Instructions Recorded Confirmed albuterol sulfate 2.5 mg INHALATION Q4-6H PRN 10/10/18 12/25/18 citalopram 20 mg PO DAILY 12/25/18 12/25/18 diazepam 2 mg PO BID PRN 12/25/18 12/25/18 fluticasone furoate-vilanterol 1 puff INHALATION DAILY 12/25/18 12/25/18 [Breo Ellipta] fluticasone propion-salmeterol 1 puff INHALATION BID 12/25/18 12/25/18 nicotine 1 patch TOPICAL DAILY 12/25/18 12/25/18 quetiapine 25 mg PO DAILY 12/25/18 12/25/18 sumatriptan succinate 1 tab PO 1-2XD 12/25/18 12/25/18 trazodone 100 mg PO DAILY 12/25/18 12/25/18 Previous Rx's Medication Instructions Recorded albuterol sulfate 2 puff INHALATION Q4-6H PRN #8 gram 07/01/18 hydrocodone-acetaminophen [[place]] 1 tab PO Q4-6H PRN #10 tab 12/25/18 ketorolac 10 mg PO TID PRN #20 tab 12/25/18 ondansetron 4 mg PO Q6H PRN #30 tab 12/25/18 Allergies Allergy/AdvReac Type Severity Reaction Status Date / Time Penicillins Allergy Intermediate Hives Verified 12/25/18 15:51 Review of Systems <RICKY Mckeon - Last Filed: 12/25/18 22:00> Review of Systems GENERAL: Denies chills, fatigue, malaise, fever, sweats. HEENT: Denies sinus pain, ear pain, sore throat, difficulty swallowing, dizziness. RESPIRATORY: Denies dyspnea, cough, wheezing, hemoptysis, sputum. CARDIOVASCULAR: Denies chest pain, palpitations, orthopnea, edema, GASTROINTESTINAL: See HPI : Denies dysuria, frequency, incontinence, hematuria, urinary retention. MUSCULOSKELETAL: denies weakness, joint pain, or bony pain SKIN: Denies rash, skin lesions, or other NEUROLOGIC: Denies weakness, headache, numbness, change in speech, confusion, seizures, incoordination. PSYCHIATRIC: No concerning psychosocial issues. 12 point review of systems is negative except for those stated above PFSH <RICKY Mckeon - Last Filed: 12/25/18 22:00> Medical History COPD (chronic obstructive pulmonary disease) (Chronic) Migraine (Chronic) Status post tubal ligation (Resolved) Surgical History Status post partial thyroidectomy (Resolved) Family History Other No significant family history Social History Smoking Status: Current every day smoker Family History Other No significant family history Social History Smoking Status: Current every day smoker Exam <RICKY Mckeon - Last Filed: 12/25/18 22:00> Narrative Exam Narrative: GENERAL: This is a well-nourished, well-developed patient, teary. HEAD: Atraumatic. Normocephalic. No temporal or scalp tenderness. EYES: Pupils equal round and reactive. Extraocular motions intact. No scleral icterus. No injection or drainage. ENT: Nose without bleeding, purulent drainage or septal hematoma. Throat without erythema, tonsillar hypertrophy or exudate. Uvula midline. Airway patent. NECK: Trachea midline. No JVD or lymphadenopathy. Supple, nontender, no meningeal signs. CARDIOVASCULAR: Regular rate and rhythm RESPIRATORY: Breath sounds equal bilaterally. Diffuse expiratory wheezes bilaterally GASTROINTESTINAL: Abdomen soft, active bowel sounds all 4 quadrants. Significant tenderness to palpation left lower quadrant, with some guarding. Significant tenderness to palpation periumbilical area with some guarding. Negative Finn sign. EXTREMITIES: No clubbing, cyanosis, or edema. No joint tenderness, effusion, or edema noted. BACK: Nontender without deformity or crepitance. No flank tenderness. NEURO: AOx3. SKIN: No rash or erythema. Initial Vital Signs Initial Vital Signs: Vital Signs Pulse Rate 99 H 12/25/18 15:52 Respiratory Rate 20 12/25/18 15:52 Blood Pressure 134/98 H 12/25/18 15:52 Pulse Oximetry 97 12/25/18 15:52 <Kennedi Fajardo MD - Last Filed: 12/26/18 03:48> Initial Vital Signs Initial Vital Signs: Vital Signs Pulse Rate 99 H 12/25/18 15:52 Respiratory Rate 20 12/25/18 15:52 Blood Pressure 134/98 H 12/25/18 15:52 Pulse Oximetry 97 12/25/18 15:52 Course <RICKY Mckeon - Last Filed: 12/25/18 22:00> Orders Ordered: ED Orders 12/25/18 19:32 US pelvic complete Stat Discontinued Medications Hydrocodone Bitart/Acetaminophen ([place] 5/325) 2 tab PO NOW ONE Stop: 12/25/18 21:06 Last Admin: 12/25/18 21:30 Dose: 2 tab Hydrocodone Bitart/Acetaminophen (Vicodin Prepack) 1 bottle MISC SEEINSTR ONE Stop: 12/25/18 21:39 Last Admin: 12/25/18 22:21 Dose: 1 bottle Sodium Chloride (Normal Saline 0.9%) 1,000 mls @ 1,000 mls/hr IV BOLUS ONE Stop: 12/25/18 18:34 Last Infusion: 12/25/18 21:34 Dose: 1,000 mls/hr Admin: 12/25/18 18:17 Dose: 1,000 mls/hr Ketorolac Tromethamine (Toradol) 30 mg IV NOW ONE Stop: 12/25/18 19:20 Last Admin: 12/25/18 19:28 Dose: 30 mg Ketorolac Tromethamine (Toradol 10mg Prepack) 1 bottle MISC SEEINSTR ONE Stop: 12/25/18 21:39 Last Admin: 12/25/18 22:21 Dose: 1 bottle Morphine Sulfate (Morphine) 4 mg IV NOW ONE Stop: 12/25/18 17:36 Last Admin: 12/25/18 18:17 Dose: 4 mg Morphine Sulfate (Morphine) 4 mg IV NOW ONE Stop: 12/25/18 19:20 Last Admin: 12/25/18 19:28 Dose: 4 mg Ondansetron HCl (Zofran) 4 mg IV NOW ONE Stop: 12/25/18 17:36 Last Admin: 12/25/18 18:17 Dose: 4 mg Ondansetron HCl (Zofran Odt Prepack) 1 bottle MISC SEEINSTR ONE Stop: 12/25/18 21:39 Last Admin: 12/25/18 22:21 Dose: 1 bottle Vital Signs - 8 hr 12/25/18 20:48 12/25/18 22:23 Temperature 99.1 F Pulse Rate 81 72 Respiratory Rate 18 18 Blood Pressure 128/79 Blood Pressure [Right Arm] 123/98 H Pulse Oximetry 97 99 <Kennedi Fajardo MD - Last Filed: 12/26/18 03:48> Orders Ordered: ED Orders 12/25/18 19:32 US pelvic complete Stat Discontinued Medications Hydrocodone Bitart/Acetaminophen ([place] 5/325) 2 tab PO NOW ONE Stop: 12/25/18 21:06 Last Admin: 12/25/18 21:30 Dose: 2 tab Hydrocodone Bitart/Acetaminophen (Vicodin Prepack) 1 bottle MISC SEEINSTR ONE Stop: 12/25/18 21:39 Last Admin: 12/25/18 22:21 Dose: 1 bottle Sodium Chloride (Normal Saline 0.9%) 1,000 mls @ 1,000 mls/hr IV BOLUS ONE Stop: 12/25/18 18:34 Last Infusion: 12/25/18 21:34 Dose: 1,000 mls/hr Admin: 12/25/18 18:17 Dose: 1,000 mls/hr Ketorolac Tromethamine (Toradol) 30 mg IV NOW ONE Stop: 12/25/18 19:20 Last Admin: 12/25/18 19:28 Dose: 30 mg Ketorolac Tromethamine (Toradol 10mg Prepack) 1 bottle MISC SEEINSTR ONE Stop: 12/25/18 21:39 Last Admin: 12/25/18 22:21 Dose: 1 bottle Morphine Sulfate (Morphine) 4 mg IV NOW ONE Stop: 12/25/18 17:36 Last Admin: 12/25/18 18:17 Dose: 4 mg Morphine Sulfate (Morphine) 4 mg IV NOW ONE Stop: 12/25/18 19:20 Last Admin: 12/25/18 19:28 Dose: 4 mg Ondansetron HCl (Zofran) 4 mg IV NOW ONE Stop: 12/25/18 17:36 Last Admin: 12/25/18 18:17 Dose: 4 mg Ondansetron HCl (Zofran Odt Prepack) 1 bottle MISC SEEINSTR ONE Stop: 12/25/18 21:39 Last Admin: 12/25/18 22:21 Dose: 1 bottle Vital Signs - 8 hr 12/25/18 20:48 12/25/18 22:23 Temperature 99.1 F Pulse Rate 81 72 Respiratory Rate 18 18 Blood Pressure 128/79 Blood Pressure [Right Arm] 123/98 H Pulse Oximetry 97 99 MDM - Abdominal Pain <RICKY Mckeon - Last Filed: 12/25/18 22:00> Lab Data Result diagrams: 12/25/18 16:30 12/25/18 16:30 Lab Results 12/25/18 12/25/18 12/25/18 Range/Units 16:30 16:30 16:30 WBC 7.9 (4.5-11.0) X10^3/uL RBC 4.66 (4.0-5.2) X10^6/uL Hgb 14.9 (12.0-16.0) g/dL Hct 44.2 (36-46) % MCV 94.8 (80-100) fL MCH 31.9 (26-34) PG MCHC 33.6 (30-36) % RDW 13.5 (11.6-14.8) % Plt Count 203 (150-400) X10^3/uL Neut % (Auto) 57.4 (50-75) % Lymph % (Auto) 31.5 (25-40) % [place] % (Auto) 7.5 (3-14) % Eos % (Auto) 2.9 (2-4) % Baso % (Auto) 0.7 (0-2) % Neut # (Auto) 4500 (4136-7595) /uL Lymph # (Auto) 2500 (7877-0391) /uL [place] # (Auto) 600 (0-900) /uL Eos # (Auto) 200 (0-450) /uL Baso # (Auto) 100 (0-100) /uL PT 11.8 (10.1-12.7) SECONDS INR 1.0 (0.9-1.3) APTT 33 D (26.4-36.2) SECONDS Sodium 143 (137-145) mmol/L Potassium 3.2 L (3.4-5.1) mmol/L Chloride 107 (98-107) mmol/L Carbon Dioxide 25 (22-32) mmol/L BUN 11 (7-17) mg/dL Creatinine 0.60 (0.52-1.04) mg/dL Estimated GFR > 60.0 (>60) mL/min BUN/Creatinine Ratio 18.3 (6-22) Glucose 103 H (70-100) mg/dL Calcium 9.2 (8.4-10.2) mg/dL Total Bilirubin 0.7 (0.2-1.3) mg/dL AST 21 (14-36) IU/L ALT 16 (9-52) IU/L Alkaline Phosphatase 67 (38-126) U/L Total Protein 7.8 (6.3-8.2) g/dL Albumin 4.5 (3.5-5.0) g/dL Globulin 3.3 (1.7-4.1) g/dL Albumin/Globulin Ratio 1.4 (1.0-2.8) Lipase 46 (23-300) U/L Urine RBC (0-5/HPF) Urine WBC (0-5/HPF) Ur Squamous Epith Cells (0-5/HPF) Calcium Oxalate Crystal Urine Bacteria (None) Urine Mucus (Negative) Ur Culture Indicated? Urine Test (Negative) 12/25/18 12/25/18 Range/Units 17:55 17:55 WBC (4.5-11.0) X10^3/uL RBC (4.0-5.2) X10^6/uL Hgb (12.0-16.0) g/dL Hct (36-46) % MCV (80-100) fL MCH (26-34) PG MCHC (30-36) % RDW (11.6-14.8) % Plt Count (150-400) X10^3/uL Neut % (Auto) (50-75) % Lymph % (Auto) (25-40) % [place] % (Auto) (3-14) % Eos % (Auto) (2-4) % Baso % (Auto) (0-2) % Neut # (Auto) (9380-3183) /uL Lymph # (Auto) (1701-7293) /uL [place] # (Auto) (0-900) /uL Eos # (Auto) (0-450) /uL Baso # (Auto) (0-100) /uL PT (10.1-12.7) SECONDS INR (0.9-1.3) APTT (26.4-36.2) SECONDS Sodium (137-145) mmol/L Potassium (3.4-5.1) mmol/L Chloride (98-107) mmol/L Carbon Dioxide (22-32) mmol/L BUN (7-17) mg/dL Creatinine (0.52-1.04) mg/dL Estimated GFR (>60) mL/min BUN/Creatinine Ratio (6-22) Glucose (70-100) mg/dL Calcium (8.4-10.2) mg/dL Total Bilirubin (0.2-1.3) mg/dL AST (14-36) IU/L ALT (9-52) IU/L Alkaline Phosphatase (38-126) U/L Total Protein (6.3-8.2) g/dL Albumin (3.5-5.0) g/dL Globulin (1.7-4.1) g/dL Albumin/Globulin Ratio (1.0-2.8) Lipase (23-300) U/L Urine RBC None seen (0-5/HPF) Urine WBC None seen (0-5/HPF) Ur Squamous Epith Cells 0-1 /hpf (0-5/HPF) Calcium Oxalate Crystal Moderate H Urine Bacteria None seen (None) Urine Mucus 1+ H (Negative) Ur Culture Indicated? Specimen cultured Urine Test Negative (Negative) Point of care testing: Urine Dip Bedside Urine Glucose Negative Bedside Urine Bilirubin + 1 Bedside Urine Ketone + 15 Urine Specific [place] 1.030 Bedside Urine Occult Blood ++ Bedside Urine Protein + 30 Bedside Urine Urobilinogen +/- 1mg Bedside Urine Nitrite - Negative Bedside Urine Leukocytes +/- 15 Esterase Imaging Data Pelvic ultrasound: Radiologist's impression: [address] [address] Ultrasound Report Signed Patient: Diana Stringer LMR#: [id number] : 1975Acct:[id number] Age/Sex: 43 / FDate of Service: 12/25/18 Loc: ED Accession Number: [id number] Procedure: US pelvic complete Ordering Provider: Annamarie Peoples OPERATIONS PROJECT MANAGER- PROCEDURE: US PELVIC COMPLETE INDICATIONS: PAIN; LEFT OVARIAN CYST TECHNIQUE: Real-time scanning was performed of the pelvic organs, with image documentation. Additional endovaginal scanning was necessary due to incomplete visualization of the adnexal and endometrial structures by transabdominal scanning. COMPARISON: [facility], CT, CT ABDOMEN PELVIS W CON, 12/25/2018, 18:59. FINDINGS: Transabdominal scanning: Limited scanning through the kidneys shows no hydronephrosis. No pathologic free abdominal or pelvic fluid. Endovaginal scanning: Uterus: Uterus is normal in size at 6.8 x 4.5 x 5.5 cm. The endometrium measures 7.6 mm in combined thickness. Ovaries: Right adnexa measures 2.8 x 1.2 x 2.0 cm. Right adnexal sonographically normal. Left adnexa measures 4.5 x 3.0 x 3.7 cm. There is a 4.1 x 2.9 x 2.8 cm simple left ovarian cyst. Doppler evaluation demonstrates normal vascular flow in the adnexa. IMPRESSION: 1. Uterus is sonographically normal. 2. Right adnexal sonographically normal. 3. 4.1 x 2.9 x 2.8 cm simple left ovarian cyst. Recommend followup imaging in 6 weeks to with resolution of the cyst. 4. No evidence of ovarian torsion. Please note intermittent ovarian torsion cannot be excluded by ultrasound. Dictated by: Ivette Keane MD, PhD on 12/25/2018 at 20:55 Approved by: Ivette Keane MD, PhD on 12/25/2018 at 20:59 CT scan - abdomen: Radiologist's impression: [place] [address] CT Scan Report Signed Patient: Diana Stringer LMR#: [id number] : 1975Acct:[id number] Age/Sex: 43 / FDate of Service: 12/25/18 Loc: ED Accession Number: [id number] Procedure: CT abdomen pelvis w con Ordering Provider: Annamarie Peoples [facility]- PROCEDURE: CT ABDOMEN PELVIS W CON INDICATIONS: abd pain TECHNIQUE: After the administration of intravenous contrast, 5 mm thick sections acquired from the diaphragm to the symphysis. 5 mm coronal and sagittal reformats were acquired. For radiation dose reduction, the following was used: automated exposure control, adjustment of mA and/or kV according to patient size. COMPARISON: None. FINDINGS: Image quality: Excellent. ABDOMEN: Lung bases: Lung bases are clear. Heart size is normal. Solid organs: Liver is normal in size and enhancement. Gallbladder is within normal limits. Biliary system is non dilated. Pancreas enhances normally. Spleen is normal in size and enhancement. No adrenal nodules. Kidneys demonstrate normal size and enhancement, without hydronephrosis. 3 mm nonobstructing stone noted in the inferior pole of the right kidney. 2 mm nonobstructing stone in the midpole of the left kidney. 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 Peritoneum and bowel: Bowel loops demonstrate normal wall thickness and c aliber. No free fluid or air. The appendix is normal. Nodes and vessels: No retroperitoneal or mesenteric adenopathy by size criteria. Aorta and inferior vena cava are normal in size. Miscellaneous: Small fat-containing umbilical hernia. PELVIS: Genitourinary: Bladder wall thickness is normal. 4.2 cm maximum diameter left adnexal region cyst. Miscellaneous: No inguinal hernias or adenopathy. Bones: No suspicious bony lesions. No vertebral body compression fractures. IMPRESSION: 1. 4.2 cm left adnexal cyst. 2. Small, bilateral nonobstructing renal stones. 3. Hepatic steatosis 4. No free fluid or free air. 5. No dilated loops of bowel. 6. The appendix is normal. Dictated by: Ivette Keane MD, PhD on 12/25/2018 at 19:23 Approved by: Ivette Keane MD, PhD on 12/25/2018 at 19:26 ECG Data Attestation: I personally reviewed and interpreted this ECG as follows: Interpretation: Sinus rhythm. Ventricular rate 84. IL interval 152. QRS interval 93. No ST elevation or depression noted. No ectopy noted. Viewed by Dr. Sachin JOHNSON Narrative Medical decision making narrative: The patient is a 43-year-old female who presents with chief complaint of abdominal pain that has been going on for the past several weeks, worsening recently. She does state that she is constipated, not having had a bowel movement for several days. She is found have an ovarian cyst on ultrasound and CT, no evidence of current torsion. She did not have any kidney stones on CT scan, however she does have some blood and crystals in her urine, so I believe that she likely recently passed a kidney stone. It is reassuring that she does have any fever or leukocytosis. It is reassuring the she passes a p.o. trial. I discussed doing a pelvic exam with evaluation for pelvic inflammatory disease, but the patient declined as she has not been sexually active in many years and believe she is low risk. Given that she does not have any fever or leukocytosis, I am okay with this plan. I discussed at length that she needs to follow up with PCP as well as her OBGYN. She states understanding. She was given taken packs of Zofran, Lortab, Toradol. I discussed not taking Toradol with any other NSAIDs such as Aleve or ibuprofen. I discussed coming back to the ER for any acute concerns such as significantly worsening pain etc. Patient has no questions or concerns upon discharge. She states she has a plan for follow-up provider. <Kennedi Fajardo MD - Last Filed: 12/26/18 03:48> Lab Data Lab Results 12/25/18 12/25/1819 Range/Units 16:30 16:30 16:30 WBC 7.9 (4.5-11.0) X10^3/uL RBC 4.66 (4.0-5.2) X10^6/uL Hgb 14.9 (12.0-16.0) g/dL Hct 44.2 (36-46) % MCV 94.8 (80-100) fL MCH 31.9 (26-34) PG MCHC 33.6 (30-36) % RDW 13.5 (11.6-14.8) % Plt Count 203 (150-400) X10^3/uL Neut % (Auto) 57.4 (50-75) % Lymph % (Auto) 31.5 (25-40) % [place] % (Auto) 7.5 (3-14) % Eos % (Auto) 2.9 (2-4) % Baso % (Auto) 0.7 (0-2) % Neut # (Auto) 4500 (2417-7210) /uL Lymph # (Auto) 2500 (5023-0994) /uL [place] # (Auto) 600 (0-900) /uL Eos # (Auto) 200 (0-450) /uL Baso # (Auto) 100 (0-100) /uL PT 11.8 (10.1-12.7) SECONDS INR 1.0 (0.9-1.3) APTT 33 D (26.4-36.2) SECONDS Sodium 143 (137-145) mmol/L Potassium 3.2 L (3.4-5.1) mmol/L Chloride 107 (98-107) mmol/L Carbon Dioxide 25 (22-32) mmol/L BUN 11 (7-17) mg/dL Creatinine 0.60 (0.52-1.04) mg/dL Estimated GFR > 60.0 (>60) mL/min BUN/Creatinine Ratio 18.3 (6-22) Glucose 103 H (70-100) mg/dL Calcium 9.2 (8.4-10.2) mg/dL Total Bilirubin 0.7 (0.2-1.3) mg/dL AST 21 (14-36) IU/L ALT 16 (9-52) IU/L Alkaline Phosphatase 67 (38-126) U/L Total Protein 7.8 (6.3-8.2) g/dL Albumin 4.5 (3.5-5.0) g/dL Globulin 3.3 (1.7-4.1) g/dL Albumin/Globulin Ratio 1.4 (1.0-2.8) Lipase 46 (23-300) U/L Urine RBC (0-5/HPF) Urine WBC (0-5/HPF) Ur Squamous Epith Cells (0-5/HPF) Calcium Oxalate Crystal Urine Bacteria (None) Urine Mucus (Negative) Ur Culture Indicated? Urine Test (Negative) 12/25/18 12/25/18 Range/Units 17:55 17:55 WBC (4.5-11.0) X10^3/uL RBC (4.0-5.2) X10^6/uL Hgb (12.0-16.0) g/dL Hct (36-46) % MCV (80-100) fL MCH (26-34) PG MCHC (30-36) % RDW (11.6-14.8) % Plt Count (150-400) X10^3/uL Neut % (Auto) (50-75) % Lymph % (Auto) (25-40) % [place] % (Auto) (3-14) % Eos % (Auto) (2-4) % Baso % (Auto) (0-2) % Neut # (Auto) (4716-5105) /uL Lymph # (Auto) (6741-4963) /uL [place] # (Auto) (0-900) /uL Eos # (Auto) (0-450) /uL Baso # (Auto) (0-100) /uL PT (10.1-12.7) SECONDS INR (0.9-1.3) APTT (26.4-36.2) SECONDS Sodium (137-145) mmol/L Potassium (3.4-5.1) mmol/L Chloride (98-107) mmol/L Carbon Dioxide (22-32) mmol/L BUN (7-17) mg/dL Creatinine (0.52-1.04) mg/dL Estimated GFR (>60) mL/min BUN/Creatinine Ratio (6-22) Glucose (70-100) mg/dL Calcium (8.4-10.2) mg/dL Total Bilirubin (0.2-1.3) mg/dL AST (14-36) IU/L ALT (9-52) IU/L Alkaline Phosphatase (38-126) U/L Total Protein (6.3-8.2) g/dL Albumin (3.5-5.0) g/dL Globulin (1.7-4.1) g/dL Albumin/Globulin Ratio (1.0-2.8) Lipase (23-300) U/L Urine RBC None seen (0-5/HPF) Urine WBC None seen (0-5/HPF) Ur Squamous Epith Cells 0-1 /hpf (0-5/HPF) Calcium Oxalate Crystal Moderate H Urine Bacteria None seen (None) Urine Mucus 1+ H (Negative) Ur Culture Indicated? Specimen cultured Urine Test Negative (Negative) Point of care testing: Urine Dip Bedside Urine Glucose Negative Bedside Urine Bilirubin + 1 Bedside Urine Ketone + 15 Urine Specific [place] 1.030 Bedside Urine Occult Blood ++ Bedside Urine Protein + 30 Bedside Urine Urobilinogen +/- 1mg Bedside Urine Nitrite - Negative Bedside Urine Leukocytes +/- 15 Esterase Discharge Plan Departure Patient Disposition: Home Clinical Impression: Bilateral renal stones, Abdominal pain in female Ovarian cyst Qualifiers: Laterality: left Qualified Code(s): N83.202 - Unspecified ovarian cyst, left side Discharge Date/Time: 12/25/18 22:25 Interventions: ED Discharge Assessment Last Done: 12/25/18 22:23 Instructions: DI for Kidney Stones, DI for Ovarian Cyst, DI for Abdominal Pain- Adult Activity Restrictions/Additional Instructions: I have given you pain and nausea medications. Your ultrasound imaging reveals a ovarian cyst as well as stones in her kidneys. The should not be causing pain. However given the blood and crystals in your urine, I believe you have recently passed a stone. This could also be causing pain. Please do not combine the Toradol with any other NSAIDs such as Aleve or ibuprofen. The [place] can be sedating or constipating. Zofran as for nausea. Please come back to the emergency department for any acute concerns such as inability keep down fluids, sudden severe abdominal pain. Your lab work today is reassuring as well as the fact that you do not have a fever. Please follow up with primary care provider in the next few days. Prescriptions: New hydrocodone-acetaminophen [[place]] 5-325 mg tablet 1 tab PO Q4-6H PRN (Reason: pain) Qty: 10 RF: 0 ketorolac 10 mg tablet 10 mg PO TID PRN (Reason: pain) Qty: 20 RF: 0 ondansetron 4 mg tablet,disintegrating 4 mg PO Q6H PRN (Reason: nausea and vomiting) Qty: 30 RF: 0 No Action albuterol sulfate 2.5 mg /3 mL (0.083 %) Solution For Nebulization 2.5 mg INHALATION Q4-6H PRN (Reason: Shortness Of Breath) RF: 0 albuterol sulfate 90 mcg/actuation HFA aerosol inhaler 2 puff INHALATION Q4-6H PRN (Reason: shortness of breath or wheezing) Qty: 8 RF: 0 quetiapine 25 mg tablet 25 mg PO DAILY RF: 0 fluticasone propion-salmeterol 250-50 mcg/dose blister with device 1 puff inhalation BID RF: 0 citalopram 20 mg tablet 20 mg PO DAILY RF: 0 trazodone 100 mg tablet 100 mg PO DAILY RF: 0 Breo Ellipta 100-25 mcg/dose blister with device 1 puff inhalation DAILY RF: 0 sumatriptan succinate 100 mg Tablet 1 tab PO 1-2XD RF: 0 diazepam 2 mg tablet 2 mg PO BID PRN (Reason: Anxiety) RF: 0 nicotine 1 patch topical DAILY RF: 0
[2018-12-25] MEDS: ONDANSETRON 4 MG ODT PREPACK 1 BOTTLE MISC (22:21)
[2018-12-25] MEDS: KETOROLAC 10MG PREPACK 1 BOTTLE MISC (22:21)
[2018-12-25] MEDS: HYDROCODONE/ACET 5/325 PREPACK 1 BOTTLE MISC (22:21)
[2018-12-25 22:23] VITALS: BP 128/79; PULSE 72; RESP 18; TEMP 37.3; O2SAT 99
== END 2018-12-25 22:25 | disposition home or self-care (01) ==
PROVIDERS: Emergency Medicine; Emergency Provider Nurse Practitioner Family
DX: N20.0 Calculus of kidney (principal); N83.202 Unspecified ovarian cyst, left side
CPT/HCPCS: 36415; 74177; 76830; 76856; 80053; 81003; 81015; 81025; 83690; 85025; 85610; 85730; 87086; 93005; 93010; 96361; 96374; 96375; 96376; 99283; 99285; J1885; J2270; J2405; Q9967

== ENCOUNTER 2019-02-03 14:18 | Emergency (ER) | payer OTHER, MEDICAID, SELFPAY ==
[2019-02-03 14:25] VITALS: PULSE 80; RESP 20; TEMP 36.6; O2SAT 96
--- NOTE | 2019-02-03 17:00 | ED_ITS ---
HPI - Abdominal Pain General Chief Complaint: Abdominal Pain Stated Complaint: abomdinal pain Time Seen by Provider: 02/03/19 17:00 Mode of arrival: Ambulatory Limitations: no limitations History of Present Illness HPI narrative: 43-year-old female smoker with history of COPD and asthma returned with a friend to the emergency department for re-evaluation of ongoing bilateral flank and groin pain. She states pain is worse when she moves and improves with rest. Sometimes the pain is so severe makes her vomit. She denies any fever chills. She denies any injury. She denies any headache, blurred vision or sore throat. Patient was seen and evaluated a month and a half ago and had labs and a CT scan with IV contrast noting ovarian cysts and bilateral kidney stones. She has been unable to Related Data Home Medications Medication Instructions Recorded Confirmed albuterol sulfate 2.5 mg INHALATION Q4-6H PRN 10/10/18 02/03/19 citalopram 20 mg PO DAILY 12/25/18 02/03/19 diazepam 2 mg PO BID PRN 12/25/18 12/25/18 fluticasone furoate-vilanterol 1 puff INHALATION DAILY 12/25/18 12/25/18 [Breo Ellipta] fluticasone propion-salmeterol 1 puff INHALATION BID 12/25/18 02/03/19 nicotine 1 patch TOPICAL DAILY 12/25/18 12/25/18 quetiapine 25 mg PO DAILY 12/25/18 12/25/18 sumatriptan succinate 1 tab PO 1-2XD 12/25/18 02/03/19 trazodone 100 mg PO DAILY 12/25/18 02/03/19 mometasone-formoterol [Dulera] INHALATION 02/03/19 tiotropium bromide [Spiriva with INHALATION 02/03/19 HandiHaler] Previous Rx's Medication Instructions Recorded albuterol sulfate 2 puff INHALATION Q4-6H PRN #8 gram 07/01/18 hydrocodone-acetaminophen [[place]] 1 tab PO Q4-6H PRN #10 tab 12/25/18 ketorolac 10 mg PO TID PRN #20 tab 12/25/18 ondansetron 4 mg PO Q6H PRN #30 tab 12/25/18 hydrocodone-acetaminophen 1 tab PO Q4-6H PRN #10 tab 02/03/19 ketorolac 10 mg PO Q6H PRN #14 tab 02/03/19 ondansetron 4 mg PO TID-QID PRN #10 tab 02/03/19 Allergies Allergy/AdvReac Type Severity Reaction Status Date / Time Penicillins Allergy Intermediate Hives Verified 12/25/18 15:51 Review of Systems Constitutional Constitutional: Denies chills, Denies fatigue, Denies fever(s), Denies frequent falls, Denies lethargy and Denies weakness Eyes Eyes: Denies change in vision, Denies eye discharge, Denies irritation and Denies loss of vision ENT Ears, Nose, Mouth, and Throat: Denies change in voice, Denies dizziness, Denies neck pain, Denies sore throat and Denies throat swelling Cardiovascular Cardiovascular: Denies chest pain, Denies irregular heart rhythm, Denies lightheadedness, Denies palpitations, Denies dyspnea, Denies dyspnea on exertion and Denies orthopnea Respiratory Respiratory: Denies cough, Denies dyspnea, Denies dyspnea on exertion and Denies wheezing Gastrointestinal Gastrointestinal: Reports abdominal pain, Denies change in bowel habits, Denies diarrhea, Denies nausea and Denies vomiting Genitourinary Genitourinary: Denies hematuria, Denies flank pain, Denies urinary incontinence and Denies urinary urgency Musculoskeletal Musculoskeletal: Reports back pain, Denies muscle weakness, Denies neck pain, Denies numbness and Denies tingling Integumentary/Breasts Skin/Breast: Denies pruritus, Denies erythema, Denies rash and Denies wounds Neurologic Neurologic: Denies behavioral changes, Denies confusion, Denies dizziness, Denies frequent falls, Denies loss of vision, Denies numbness, Denies tingling and Denies weakness Psychiatric Psychiatric: Denies anxiety, Denies behavioral changes, Denies confusion, Denies depression, Denies homicidal ideation and Denies suicidal ideation Endocrine Endocrine: Denies fatigue, Denies flushing and Denies palpitations Hematologic/Lymphatic Hematologic/Lymphatic: Denies easy bruising Allergic/Immunologic Allergic/Immunologic: Denies urticaria, Denies throat swelling and Denies wheezing PFSH Medical History COPD (chronic obstructive pulmonary disease) (Chronic) Migraine (Chronic) Status post tubal ligation (Resolved) Surgical History Status post partial thyroidectomy (Resolved) Family History Other No significant family history Social History Smoking Status: Current every day smoker Family History Other No significant family history Social History Smoking Status: Current every day smoker Exam Narrative Exam Narrative: GENERAL: [43] year old patient appears stated age. Well- nourished, well-developed patient, in mild distress. Tearful, obviously upset HEAD: Atraumatic. Normocephalic. EYES: Pupils equal round and reactive. Extraocular motions intact. No scleral icterus. No injection or drainage. ENT: Nose without bleeding, purulent drainage. Throat without erythema, tonsillar hypertrophy or exudate. Airway patent. NECK: Trachea midline. Non tender CARDIOVASCULAR: Regular rate and rhythm without murmurs, gallops, or rubs. RESPIRATORY: Decreased breath sounds bilaterally with prolonged expiratory phase and some expiratory wheeze GASTROINTESTINAL: Abdomen soft, mild generalized tenderness, nondistended. No guarding, normal bowel sounds in all 4 quadrants EXTREMITIES: No edema or joint tenderness. BACK: Nontender without deformity or crepitance. No flank tenderness. NEURO: AOx3. SKIN: No rash or erythema of visible areas Initial Vital Signs Initial Vital Signs: Vital Signs Temperature 97.9 F 02/03/19 14:25 Pulse Rate 80 02/03/19 14:25 Respiratory Rate 20 02/03/19 14:25 Pulse Oximetry 96 02/03/19 14:25 Course Orders Ordered: ED Orders 02/03/19 14:28 Urinalysis and Microscopic Stat 02/03/19 18:10 Complete Blood Count AUTO DIFF Stat Comprehensive Metabolic Panel Stat Lipase Stat 02/03/19 18:40 CT abdomen pelvis w con Stat Ondansetron HCl (Zofran) 4 mg IV Q4HR PRN PRN Reason: Nausea And Vomiting Last Admin: 02/03/19 18:09 Dose: 4 mg Documented by: JACKY Discontinued Medications Hydromorphone HCl (Dilaudid) 0.5 mg IV NOW ONE Stop: 02/03/19 17:21 Last Admin: 02/03/19 18:10 Dose: 0.5 mg Documented by: JACKY Sodium Chloride (Normal Saline 0.9%) 1,000 mls @ 1,000 mls/hr IV BOLUS ONE Stop: 02/03/19 18:19 Last Admin: 02/03/19 18:09 Dose: 1,000 mls/hr Documented by: JACKY Vital Signs Vital signs: Vital Signs - 8 hr 02/03/19 14:25 02/03/19 18:16 02/03/19 19:17 Temperature 97.9 F Pulse Rate 80 71 83 Respiratory Rate 20 21 18 Blood Pressure [Left Arm] 149/97 H 155/96 H Pulse Oximetry 96 99 97 MDM - Abdominal Pain Lab Data Result diagrams: 02/03/19 18:10 02/03/19 18:10 Labs: Lab Results 02/03/19 02/03/19 Range/Units 18:10 18:10 WBC 8.9 (4.5-11.0) X10^3/uL RBC 4.44 (4.0-5.2) X10^6/uL Hgb 14.3 (12.0-16.0) g/dL Hct 41.9 (36-46) % MCV 94.3 (80-100) fL MCH 32.2 (26-34) PG MCHC 34.1 (30-36) % RDW 14.1 (11.6-14.8) % Plt Count 194 (150-400) X10^3/uL Neut % (Auto) 64.4 (50-75) % Lymph % (Auto) 24.2 L (25-40) % Bertie % (Auto) 8.8 (3-14) % Eos % (Auto) 1.9 L (2-4) % Baso % (Auto) 0.7 (0-2) % Neut # (Auto) 5800 (1173-9477) /uL Lymph # (Auto) 2200 ([address]34-6164) /uL Bertie # (Auto) 800 (0-900) /uL Eos # (Auto) 200 (0-450) /uL Baso # (Auto) 100 (0-100) /uL Sodium 141 (137-145) mmol/L Potassium 3.7 (3.4-5.1) mmol/L Chloride 107 (98-107) mmol/L Carbon Dioxide 25 (22-32) mmol/L BUN 13 (7-17) mg/dL Creatinine 0.50 L (0.52-1.04) mg/dL Estimated GFR > 60.0 (>60) mL/min BUN/Creatinine Ratio 26.0 H (6-22) Glucose 102 H (70-100) mg/dL Calcium 9.3 (8.4-10.2) mg/dL Total Bilirubin 0.4 (0.2-1.3) mg/dL AST 20 (14-36) IU/L ALT 17 (9-52) IU/L Alkaline Phosphatase 59 (38-126) U/L Total Protein 7.2 (6.3-8.2) g/dL Albumin 4.1 (3.5-5.0) g/dL Globulin 3.1 (1.7-4.1) g/dL Albumin/Globulin Ratio 1.3 (1.0-2.8) Lipase 62 (23-300) U/L Imaging Data CT scan - abdomen: Radiologist's impression: [address] [address] [address] Scan Report Signed Patient: Diana Stringer LMR#: [id number] : [id number]:[id number] Age/Sex: 43 / FDate of Service: 02/03/19 Loc: ED Accession Number: [id number] Procedure: CT abdomen pelvis w con Ordering Provider: Nathan Last D.O. PROCEDURE: CT ABDOMEN PELVIS W CON INDICATIONS: severe back / abdominal pain, much worse than last visit TECHNIQUE: After the administration of intravenous contrast, 5 mm thick sections acquired from the diaphragm to the symphysis. 5 mm coronal and sagittal reformats were acquired. For radiation dose reduction, the following was used: automated exposure control, adjustment of mA and/or kV according to patient size. COMPARISON: [facility], CT, CT ABDOMEN PELVIS W CON, 12/25/2018, 18:59. FINDINGS: Image quality: Excellent. ABDOMEN: Lung bases: Lung bases are clear. Heart size is normal. Solid organs: Liver is normal in size and enhancement. Hepatic steatosis is seen. Gallbladder is within normal limits 2-3 mm bilateral nonobstructing renal calculi are again seen. No perinephric fat stranding or fluid.. Biliary system is non dilated. Pancreas enhances normally. Spleen is normal in size and enhancement. No adrenal nodules. Kidneys demonstrate normal size and enhancement, without hydronephrosis. Peritoneum and bowel: Bowel loops demonstrate normal wall thickness and caliber. No free fluid or air. The appendix is visualized and is within normal limits. Mild sigmoid diverticulosis is seen, no CT evidence of acute diverticulitis. Nodes and vessels: No retroperitoneal or mesenteric adenopathy by size criteria. Aorta and inferior vena cava are normal in size. Miscellaneous: No ventral hernias. PELVIS: Genitourinary: Bladder wall thickness is normal. 4 x 3 cm left adnexal cyst is unchanged from previous study. A physiologic amount of fluid is noted in lower pelvis. Miscellaneous: No inguinal hernias or adenopathy. Bones: No suspicious bony lesions. No vertebral body compression fractures. IMPRESSION: 1. No significant changes from previous study. 2. Bilateral nonobstructing renal calculi. No hydronephrosis. Normal appearing urinary bladder. 3. Normal appendix. No bowel obstruction. No free fluid or free air. 4. Stable 4 cm left adnexal cyst. Physiologic amount of fluid in lower pelvis. Dictated by: Allen Leonardo M.D. on 02/03/2019 at 19:22 Approved by: Allen Leonardo M.D. on 02/03/2019 at 19:28 MDM Narrative Medical decision making narrative: 43-year-old female smoker returns for re-evaluation of very nonspecific generalized abdominal and back pain for quite some time. She had a very thorough evaluation in December without any significant findings. She denies much in the way of improvement. She denies much in the way of specific symptoms. CT scan demonstrates no significant findings, labs are very reassuring. Patient is tearful, admittedly stressed and not sleeping well. There seemed to be multiple factors contributing that are likely lowering her ability to cope. At the end of her visit she has come down, feels much better and is prepared for discharge. She has been given extensive return precautions and has had all questions answered to her apparent satisfaction Discharge Plan Departure Patient Disposition: Home Clinical Impression: Abdominal pain Qualifiers: Abdominal location: generalized Qualified Code(s): R10.84 - Generalized abdominal pain Instructions: DI for Abdominal Pain-Adult Activity Restrictions/Additional Instructions: *You have been diagnosed with [chronic abdominal and back pain] *What to do: *Take medications as directed *Follow up with your primary care provider in 2-3 days, call for an appointment. Let them know you were seen in the Emergency Department and that we ask that you be seen in follow up *Return to ER if you should have any new, worsening or concerning symptoms STOP SMOKING, get some rest, drink plenty of water, stay active Prescriptions: New hydrocodone-acetaminophen 5-325 mg tablet 1 tab PO Q4-6H PRN (Reason: pain) Qty: 10 RF: 0 ketorolac 10 mg tablet 10 mg PO Q6H PRN (Reason: pain) Qty: 14 RF: 0 ondansetron 4 mg tablet,disintegrating 4 mg PO TID-QID PRN (Reason: nausea and vomiting) Qty: 10 RF: 0 No Action albuterol sulfate 2.5 mg /3 mL (0.083 %) Solution For Nebulization 2.5 mg INHALATION Q4-6H PRN (Reason: Shortness Of Breath) RF: 0 Spiriva with HandiHaler 18 mcg capsule, w/inhalation device INHALATION RF: 0 Dulera 100-5 mcg/actuation HFA aerosol inhaler INHALATION RF: 0 albuterol sulfate 90 mcg/actuation HFA aerosol inhaler 2 puff INHALATION Q4-6H PRN (Reason: shortness of breath or wheezing) Qty: 8 RF: 0 quetiapine 25 mg tablet 25 mg PO DAILY RF: 0 fluticasone propion-salmeterol 250-50 mcg/dose blister with device 1 puff inhalation BID RF: 0 citalopram 20 mg tablet 20 mg PO DAILY RF: 0 trazodone 100 mg tablet 100 mg PO DAILY RF: 0 Breo Ellipta 100-25 mcg/dose blister with device 1 puff inhalation DAILY RF: 0 sumatriptan succinate 100 mg Tablet 1 tab PO 1-2XD RF: 0 diazepam 2 mg tablet 2 mg PO BID PRN (Reason: Anxiety) RF: 0 nicotine 1 patch topical DAILY RF: 0 hydrocodone-acetaminophen [[place]] 5-325 mg tablet 1 tab PO Q4-6H PRN (Reason: pain) Qty: 10 RF: 0 ketorolac 10 mg tablet 10 mg PO TID PRN (Reason: pain) Qty: 20 RF: 0 ondansetron 4 mg tablet,disintegrating 4 mg PO Q6H PRN (Reason: nausea and vomiting) Qty: 30 RF: 0
[2019-02-03] MEDS: ONDANSETRON 4 MG/2 ML INJ IV (18:09)
[2019-02-03] MEDS: SODIUM CHLORIDE 0.9% 1,000 ML 1000 ML IV (18:09)
[2019-02-03] MEDS: HYDROMORPHONE 0.5 MG INJ IV (18:10)
[2019-02-03 18:16] VITALS: BP 149/97; PULSE 71; RESP 21; O2SAT 99
[2019-02-03 18:27] LABS: Add Manual Diff / Slide Review NO; Basophils Absolute Auto 100 /uL (0-100); Basophils Percent Auto 0.7 % (0-2); Eosinophils Absolute Auto 200 /uL (0-450); Eosinophils Percent Auto 1.9 % (2-4); Hematocrit 41.9 % (36-46); Hemoglobin 14.3 g/dL (12.0-16.0); Lymphocytes Absolute Auto 2200 /uL (1100-4500); Lymphocytes Percent Auto 24.2 % (25-40); Mean Corpuscular HGB Conc 34.1 % (30-36); Mean Corpuscular Hemoglobin 32.2 PG (26-34); Mean Corpuscular Volume 94.3 fL (80-100); Monocytes Absolute Auto 800 /uL (0-900); Monocytes Percent Auto 8.8 % (3-14); Neutrophils Absolute Auto 5800 /uL (1500-7000); Neutrophils Percent Auto 64.4 % (50-75); Platelet Count 194 X10^3/uL (150-400); Red Blood Cell Count 4.44 X10^6/uL (4.0-5.2); Red Cell Distribution Width 14.1 % (11.6-14.8); White Blood Cell Count 8.9 X10^3/uL (4.5-11.0)
[2019-02-03 18:32] LABS: Alanine Aminotransferase 17 IU/L (9-52); Albumin 4.1 g/dL (3.5-5.0); Albumin Globulin Ratio 1.3 (1.0-2.8); Alkaline Phosphatase 59 U/L (38-126); Aspartate Aminotransferase 20 IU/L (14-36); Bilirubin Total 0.4 mg/dL (0.2-1.3); Blood Urea Nitrogen 13 mg/dL (7-17); Calcium 9.3 mg/dL (8.4-10.2); Carbon Dioxide 25 mmol/L (22-32); Chloride 107 mmol/L (98-107); Estimated Glomerular Filt Rate > 60.0 mL/min (>60); Globulin 3.1 g/dL (1.7-4.1); Glucose 102 mg/dL (70-100); HEMOLYSIS 19 (0-50); Lipase 62 U/L (23-300); Potassium 3.7 mmol/L (3.4-5.1); Sodium 141 mmol/L (137-145); Total Protein 7.2 g/dL (6.3-8.2)
--- NOTE | 2019-02-03 18:40 | DI.CT.S_ITS ---
PROCEDURE: CT ABDOMEN PELVIS W CON INDICATIONS: severe back / abdominal pain, much worse than last visit TECHNIQUE: After the administration of intravenous contrast, 5 mm thick sections acquired from the diaphragm to the symphysis. 5 mm coronal and sagittal reformats were acquired. For radiation dose reduction, the following was used: automated exposure control, adjustment of mA and/or kV according to patient size. COMPARISON: [facility], CT, CT ABDOMEN PELVIS W CON, 12/25/2018, 18:59. FINDINGS: Image quality: Excellent. ABDOMEN: Lung bases: Lung bases are clear. Heart size is normal. Solid organs: Liver is normal in size and enhancement. Hepatic steatosis is seen. Gallbladder is within normal limits 2-3 mm bilateral nonobstructing renal calculi are again seen. No perinephric fat stranding or fluid.. Biliary system is non dilated. Pancreas enhances normally. Spleen is normal in size and enhancement. No adrenal nodules. Kidneys demonstrate normal size and enhancement, without hydronephrosis. Peritoneum and bowel: Bowel loops demonstrate normal wall thickness and caliber. No free fluid or air. The appendix is visualized and is within normal limits. Mild sigmoid diverticulosis is seen, no CT evidence of acute diverticulitis. Nodes and vessels: No retroperitoneal or mesenteric adenopathy by size criteria. Aorta and inferior vena cava are normal in size. Miscellaneous: No ventral hernias. PELVIS: Genitourinary: Bladder wall thickness is normal. 4 x 3 cm left adnexal cyst is unchanged from previous study. A physiologic amount of fluid is noted in lower pelvis. Miscellaneous: No inguinal hernias or adenopathy. Bones: No suspicious bony lesions. No vertebral body compression fractures. IMPRESSION: 1. No significant changes from previous study. 2. Bilateral nonobstructing renal calculi. No hydronephrosis. Normal appearing urinary bladder. 3. Normal appendix. No bowel obstruction. No free fluid or free air. 4. Stable 4 cm left adnexal cyst. Physiologic amount of fluid in lower pelvis. Dictated by: Allen Leonardo M.D. on 02/03/2019 at 19:22 Approved by: Allen Leonardo M.D. on 02/03/2019 at 19:28
[2019-02-03 19:17] VITALS: BP 155/96; PULSE 83; RESP 18; O2SAT 97
--- NOTE | 2019-02-27 08:58 | PC.NURSE ---
NS 1L IV stop time 1820 hrs
== END 2019-02-03 19:54 | disposition home or self-care (01) ==
PROVIDERS: Emergency Provider Emergency Medicine
DX: R10.84 Generalized abdominal pain (principal)
CPT/HCPCS: 36415; 74177; 80053; 83690; 85025; 96374; 96375; 99282; 99284; J1170; J2405; Q9967

== ENCOUNTER 2019-02-23 10:25 | Emergency (ER) | payer OTHER, MEDICAID, SELFPAY ==
[2019-02-23 10:44] VITALS: BP 170/98; PULSE 88; RESP 18; TEMP 36.9; O2SAT 99
[2019-02-23 10:51] VITALS: PULSE 88; RESP 24; O2SAT 98
[2019-02-23] MEDS: ALBUTEROL/IPRATROPIUM 3 ML AMPUL 9 ML INH (10:51)
--- NOTE | 2019-02-23 11:09 | DI.RAD.S_ITS ---
PROCEDURE: XR CHEST 1V INDICATIONS: sob, copd, wheezing TECHNIQUE: One view of the chest was acquired. COMPARISON: [facility], CR, XR CHEST 2V, 10/10/2018, 10:33. [facility], CR, XR CHEST 2V, 07/01/2018, 13:20. FINDINGS: Surgical changes and devices: None. Lungs and pleura: Lungs are clear. No pleural effusions or pneumothorax. Mediastinum: Mediastinal contours appear normal. Heart size is normal. Bones and chest wall: No suspicious bony lesions. Overlying soft tissues appear unremarkable. IMPRESSION: No pneumonia found. Dictated by: Osmany Barone M.D. on 02/23/2019 at 12:08 Approved by: Osmany Barone M.D. on 02/23/2019 at 12:09
--- NOTE | 2019-02-23 11:14 | ED.FEVER ---
HPI - Fever <Arielle RooneySERGEI - Last Filed: 02/23/19 21:54> General Chief Complaint: Fever Stated Complaint: prod cough/fevers/n&v/COPD x7 days Time Seen by Provider: 02/23/19 10:57 Source: patient Mode of arrival: Ambulatory Limitations: no limitations History of Present Illness HPI Narrative: 43-year-old female who is a current smoker with COPD, presents emergency department today complaining of shortness of breath, wheezing, and productive cough for the past 2 weeks. The patient states she has been treated with oral steroids for 1.5 weeks and azithromycin, but reports no improvement. She states she has chronic abdominal pain and occasional vomiting for the past few months and is being referred to GI and pain management. Patient denies any fevers, syncope, diarrhea, chest pain, limb swelling, or dizziness. Related Data Home Medications Medication Instructions Recorded Confirmed albuterol sulfate 2.5 mg INHALATION Q4-6H PRN 10/10/18 02/03/19 citalopram 20 mg PO DAILY 12/25/18 02/03/19 diazepam 2 mg PO BID PRN 12/25/18 12/25/18 fluticasone furoate-vilanterol 1 puff INHALATION DAILY 12/25/18 12/25/18 [Breo Ellipta] fluticasone propion-salmeterol 1 puff INHALATION BID 12/25/18 02/03/19 nicotine 1 patch TOPICAL DAILY 12/25/18 12/25/18 quetiapine 25 mg PO DAILY 12/25/18 12/25/18 sumatriptan succinate 1 tab PO 1-2XD 12/25/18 02/03/19 trazodone 100 mg PO DAILY 12/25/18 02/03/19 mometasone-formoterol [Dulera] INHALATION 02/03/19 tiotropium bromide [Spiriva with INHALATION 02/03/19 HandiHaler] Previous Rx's Medication Instructions Recorded albuterol sulfate 2 puff INHALATION Q4-6H PRN #8 gram 07/01/18 hydrocodone-acetaminophen [[place]] 1 tab PO Q4-6H PRN #10 tab 12/25/18 ketorolac 10 mg PO TID PRN #20 tab 12/25/18 ondansetron 4 mg PO Q6H PRN #30 tab 12/25/18 hydrocodone-acetaminophen 1 tab PO Q4-6H PRN #10 tab 02/03/19 ketorolac 10 mg PO Q6H PRN #14 tab 02/03/19 ondansetron 4 mg PO TID-QID PRN #10 tab 02/03/19 lidocaine 2 patch TOP DAILY #15 each 02/23/19 prednisone 40 mg PO DAILY 4 Days tab 02/23/19 Allergies Allergy/AdvReac Type Severity Reaction Status Date / Time Penicillins Allergy Intermediate Hives Verified 02/23/19 10:52 Review of Systems <SERGEI Knox - Last Filed: 02/23/19 21:54> Review of Systems Narrative: REVIEW OF SYSTEMS: GENERAL: Denies fever or chills. HENT: No head trauma, hearing loss or sore throat. EYES: No loss of vision, double vision, eye pain, or irritation. CARDIOVASCULAR: No chest pain or syncope. RESPIRATORY: Complains of shortness of breath and cough, see HPI. GASTROINTESTINAL: Reports chronic abdominal pain, see HPI. GENITOURINARY: No flank pain or dysuria. MUSCULOSKELETAL: No pain, weakness, or deformities. INTEGUMENTARY: No rash, lesions, or pruritus. NEURO: No numbness, tingling, memory loss, or confusion. PSYCH: No behavior or mood changes. Patient History <SERGEI Knox - Last Filed: 02/23/19 21:54> Medical/Surgical History Medical History COPD (chronic obstructive pulmonary disease) (Chronic) Migraine (Chronic) Surgical History Status post partial thyroidectomy (Resolved) Status post tubal ligation (Resolved) Family History Other No significant family history Social History Smoking Status: Current every day smoker Family/Social History Family History Other No significant family history Social History Smoking Status: Current every day smoker tobacco type: cigarettes alcohol intake frequency: 0-2 drinks per day Substance Use Type: marijuana Exam <Arielle SERGEI Rooney - Last Filed: 02/23/19 21:54> Narrative Exam Narrative: PHYSICAL EXAMINATION: GENERAL: Well groomed, alert, and cooperative. Answers questions promptly and appropriately. Vital signs noted. HENT: Normocephalic, atraumatic. Ear canals patent. Oropharynx without erythema. EYES: Conjunctiva pink, sclera white, no periorbital swelling. CHEST: Normal to inspection and without deformities. CARDIOVASCULAR: S1 and S2 sounds normal. Regular rate and rhythm, no murmurs, clicks, or bruits. No pedal edema. RESPIRATORY: Normal respiratory rate, trachea midline, airway patent. No stridor, nasal flaring or accessory muscle use. Expiratory wheezes heard throughout all lung sanz, decreased lung sounds to bases bilaterally. Lung sounds improved significantly after administration of duo nebs within the emergency department, scattered expiratory wheezes were still heard for patient reported she was feeling much better. Patient was able to ambulate to the bathroom without increased symptoms. GASTROINTESTINAL: Bowel sounds normoactive. Abdomen is soft, patient reports reports slight tenderness throughout all sanz of abdomen. No rebound tenderness. No organomegaly. MUSCULOSKELETAL: Normal gait and coordination. Equal tone and mass bilaterally. EXTREMITIES: CMS intact. Moves all extremities. SKIN: Warm, dry, soft, appropriate color for ethnicity. No lesions, rashes, or wounds. NEURO: Alert and Oriented X 3. Good coordination. No ataxia, or sensory deficits, or cognitive issues. PSYCH: Appropriate affect and mood. Initial Vital Signs Initial Vital Signs: Vital Signs Temperature 98.4 F 02/23/19 10:44 Pulse Rate 88 02/23/19 10:44 Respiratory Rate 18 02/23/19 10:44 Blood Pressure 170/98 H 02/23/19 10:44 Pulse Oximetry 99 02/23/19 10:44 <Earl Neff DO - Last Filed: 02/24/19 06:58> Initial Vital Signs Initial Vital Signs: Vital Signs Temperature 98.4 F 02/23/19 10:44 Pulse Rate 88 02/23/19 10:44 Respiratory Rate 18 02/23/19 10:44 Blood Pressure 170/98 H 02/23/19 10:44 Pulse Oximetry 99 02/23/19 10:44 Course <Arielle CastilloSERGEI wright - Last Filed: 02/23/19 21:54> Course Course Narrative: Patient was given 3 dubonebs in the emergency department stay. Lung sounds improved significantly after administration of duo nebs, scattered expiratory wheezes were still heard for patient reported she was feeling much better. Patient was able to ambulate to and from the bathroom without worsening symptoms. Had an extensive conversation with patient about her abdominal pain, I discussed that her past imaging and today's labs very reassuring. Patient was tearful and frustrated stating ?I wish people would just tell me what is wrong with me, it is demeaning to be here ?. We discussed the importance of follow-up with GI for further testing such as colonoscopy. We discussed pain management such as lidocaine patches. Orders Ordered: Discontinued Medications Albuterol (Ventolin) 2.5 mg INH NOW ONE Stop: 02/23/19 12:29 Last Admin: 02/23/19 12:30 Dose: 2.5 mg Documented by: MILLIE Albuterol/Ipratropium (Duoneb) 9 ml INH NOW ONE Stop: 02/23/19 10:49 Last Admin: 02/23/19 10:51 Dose: 9 ml Documented by: MILLIE Ketorolac Tromethamine (Toradol) 30 mg IV NOW ONE Stop: 02/23/19 12:04 Last Admin: 02/23/19 12:24 Dose: 30 mg Documented by: HILDA Methylprednisolone (Solu-Medrol 125 Mg Vial) 125 mg IV NOW ONE Stop: 02/23/19 11:21 Last Admin: 02/23/19 12:24 Dose: 125 mg Documented by: HILDA Consultations Consultation #1: Patient staffed Dr. Neff Vital Signs Vital signs: Vital Signs - 8 hr 02/23/19 14:19 02/23/19 14:23 Pulse Rate 96 H 96 H Respiratory Rate 18 18 Blood Pressure 141/70 H Blood Pressure [Left Arm] 141/79 H Pulse Oximetry 96 100 <Earl Neff DO - Last Filed: 02/24/19 06:58> Orders Ordered: Discontinued Medications Albuterol (Ventolin) 2.5 mg INH NOW ONE Stop: 02/23/19 12:29 Last Admin: 02/23/19 12:30 Dose: 2.5 mg Documented by: MILLIE Albuterol/Ipratropium (Duoneb) 9 ml INH NOW ONE Stop: 02/23/19 10:49 Last Admin: 02/23/19 10:51 Dose: 9 ml Documented by: MILLIE Ketorolac Tromethamine (Toradol) 30 mg IV NOW ONE Stop: 02/23/19 12:04 Last Admin: 02/23/19 12:24 Dose: 30 mg Documented by: HILDA Methylprednisolone (Solu-Medrol 125 Mg Vial) 125 mg IV NOW ONE Stop: 02/23/19 11:21 Last Admin: 02/23/19 12:24 Dose: 125 mg Documented by: HILDA Vital Signs Vital signs: Vital Signs - 8 hr 02/23/19 14:19 02/23/19 14:23 Pulse Rate 96 H 96 H Respiratory Rate 18 18 Blood Pressure 141/70 H Blood Pressure [Left Arm] 141/79 H Pulse Oximetry 96 100 MDM - Fever <SERGEI Knox - Last Filed: 02/23/19 21:54> Medical Records Attestation: I reviewed the patient's medical records. Lab Data Attestation: I reviewed the patient's lab results. Result diagrams: 02/23/19 12:15 02/23/19 12:15 Labs: Lab Results 02/23/19 02/23/19 02/23/19 Range/Units 12:15 12:15 13:15 WBC 10.8 (4.5-11.0) X10^3/uL RBC 4.41 (4.0-5.2) X10^6/uL Hgb 14.4 (12.0-16.0) g/dL Hct 42.4 (36-46) % MCV 96.1 (80-100) fL MCH 32.7 (26-34) PG MCHC 34.0 (30-36) % RDW 14.3 (11.6-14.8) % Plt Count 206 (150-400) X10^3/uL Neut % (Auto) 56.7 (50-75) % Lymph % (Auto) 33.0 (25-40) % [place] % (Auto) 6.9 (3-14) % Eos % (Auto) 3.1 (2-4) % Baso % (Auto) 0.3 (0-2) % Neut # (Auto) 6200 (1759-6732) /uL Lymph # (Auto) 3600 (2902-8805) /uL [place] # (Auto) 800 (0-900) /uL Eos # (Auto) 300 (0-450) /uL Baso # (Auto) 0 (0-100) /uL Sodium 139 (137-145) mmol/L Potassium 3.2 L (3.4-5.1) mmol/L Chloride 105 (98-107) mmol/L Carbon Dioxide 27 (22-32) mmol/L BUN 12 (7-17) mg/dL Creatinine 0.60 (0.52-1.04) mg/dL Estimated GFR > 60.0 (>60) mL/min BUN/Creatinine Ratio 20.0 (6-22) Glucose 106 H (70-100) mg/dL Calcium 8.7 (8.4-10.2) mg/dL Total Bilirubin 0.4 (0.2-1.3) mg/dL AST 22 (14-36) IU/L ALT 20 (9-52) IU/L Alkaline Phosphatase 62 (38-126) U/L Total Creatine Kinase 33 (30-135) U/L CK-MB (CK-2) TNP CK-MB (CK-2) Rel Index TNP Troponin I < 0.012 (0.01-0.034) ng/mL Total Protein 7.2 (6.3-8.2) g/dL Albumin 4.1 (3.5-5.0) g/dL Globulin 3.1 (1.7-4.1) g/dL Albumin/Globulin Ratio 1.3 (1.0-2.8) Influenza A & B (PCR) Negative (Negative) Imaging Data Chest x-ray: Radiologist's impression: [address] [address] XRay Report Signed Patient: Diana Stringer LMR#: [id number] : 1975Acct:[id number] Age/Sex: 43 / FDate of Service: 02/23/19 Loc: ED Accession Number: [id number] Procedure: XR chest 1V Ordering Provider: Arielle Rooney PROCEDURE: XR CHEST 1V INDICATIONS: sob, copd, wheezing TECHNIQUE: One view of the chest was acquired. COMPARISON: [facility], CR, XR CHEST 2V, 10/10/2018, 10:33. [facility], CR, XR CHEST 2V, 07/01/2018, 13:20. FINDINGS: Surgical changes and devices: None. Lungs and pleura: Lungs are clear. No pleural effusions or pneumothorax. Mediastinum: Mediastinal contours appear normal. Heart size is normal. Bones and chest wall: No suspicious bony lesions. Overlying soft tissues appear unremarkable. IMPRESSION: No pneumonia found. Dictated by: Osmany Barone M.D. on 02/23/2019 at 12:08 Approved by: Osmany Barone M.D. on 02/23/2019 at 12:09 ECG Data Interpretation: Sinus rhythm, rate 83, OH interval 137, QTC 411. No ST elevation or ST depression. No ectopy. No T-wave abnormality. EKG was also viewed by Dr. Neff. MDM Narrative Medical decision making narrative: I suspect patient's symptoms are caused by COPD exacerbation most likely caused by viral illness. Less concern for pneumonia due to recent course of antibiotics and negative chest x-ray. Patient is a candidate for outpatient treatment as her symptoms resolved with DuoNeb administration and she was able to walk around without worsening symptoms. Her prednisone taper was extended. She was encouraged to follow up with her primary care provider for further evaluation of COPD symptoms. She was encouraged to stop smoking. Very low suspicion for an acute abdomen due to failing no murmur abdominal exam, non remarkable labs, and past pelvic ultrasound and abdominal CT showing no concerning symptoms. Patient was encouraged to follow up with GI as scheduled, she was also encouraged to follow up with pain management as she was referred to for chronic abdominal pain. Patient was given lidocaine patches. Strict return precautions given and follow-up instructions discussed. <Earl Neff, DO - Last Filed: 02/24/19 06:58> Lab Data Labs: Lab Results 02/23/19 02/23/19 02/23/19 Range/Units 12:15 12:15 13:15 WBC 10.8 (4.5-11.0) X10^3/uL RBC 4.41 (4.0-5.2) X10^6/uL Hgb 14.4 (12.0-16.0) g/dL Hct 42.4 (36-46) % MCV 96.1 (80-100) fL MCH 32.7 (26-34) PG MCHC 34.0 (30-36) % RDW 14.3 (11.6-14.8) % Plt Count 206 (150-400) X10^3/uL Neut % (Auto) 56.7 (50-75) % Lymph % (Auto) 33.0 (25-40) % [place] % (Auto) 6.9 (3-14) % Eos % (Auto) 3.1 (2-4) % Baso % (Auto) 0.3 (0-2) % Neut # (Auto) 6200 (2400-5331) /uL Lymph # (Auto) 3600 (0253-0603) /uL [place] # (Auto) 800 (0-900) /uL Eos # (Auto) 300 (0-450) /uL Baso # (Auto) 0 (0-100) /uL Sodium 139 (137-145) mmol/L Potassium 3.2 L (3.4-5.1) mmol/L Chloride 105 (98-107) mmol/L Carbon Dioxide 27 (22-32) mmol/L BUN 12 (7-17) mg/dL Creatinine 0.60 (0.52-1.04) mg/dL Estimated GFR > 60.0 (>60) mL/min BUN/Creatinine Ratio 20.0 (6-22) Glucose 106 H (70-100) mg/dL Calcium 8.7 (8.4-10.2) mg/dL Total Bilirubin 0.4 (0.2-1.3) mg/dL AST 22 (14-36) IU/L ALT 20 (9-52) IU/L Alkaline Phosphatase 62 (38-126) U/L Total Creatine Kinase 33 (30-135) U/L CK-MB (CK-2) TNP CK-MB (CK-2) Rel Index TNP Troponin I < 0.012 (0.01-0.034) ng/mL Total Protein 7.2 (6.3-8.2) g/dL Albumin 4.1 (3.5-5.0) g/dL Globulin 3.1 (1.7-4.1) g/dL Albumin/Globulin Ratio 1.3 (1.0-2.8) Influenza A & B (PCR) Negative (Negative) Discharge Plan Departure Patient Disposition: Home Clinical Impression: COPD (chronic obstructive pulmonary disease) Qualifiers: COPD type: unspecified COPD Qualified Code(s): J44.9 - Chronic obstructive pulmonary disease, unspecified Discharge Date/Time: 02/23/19 14:25 Instructions: DI for Chronic Obstructive Pulmonary Disease Activity Restrictions/Additional Instructions: Thank you for entrusting me with your care today. As discussed, your x-ray was negative for pneumonia. Please continue to use your inhalers as directed and take your previously prescribed prednisone as directed, I have prescribed a few additional doses of prednisone. Follow up with her primary care provider as planned on Sunday. Return to the emergency department if he develops high fevers, syncope, chest pain, worsening shortness of breath, uncontrollable vomiting, either concerning symptoms. Prescriptions: New prednisone 20 mg tablet 40 mg PO DAILY 4 Days RF: 0 lidocaine 5 % adhesive patch,medicated 2 patch TOP DAILY Qty: 15 RF: 0 No Action albuterol sulfate 2.5 mg /3 mL (0.083 %) Solution For Nebulization 2.5 mg INHALATION Q4-6H PRN (Reason: Shortness Of Breath) RF: 0 Spiriva with HandiHaler 18 mcg capsule, w/inhalation device INHALATION RF: 0 Dulera 100-5 mcg/actuation HFA aerosol inhaler INHALATION RF: 0 hydrocodone-acetaminophen 5-325 mg tablet 1 tab PO Q4-6H PRN (Reason: pain) Qty: 10 RF: 0 ketorolac 10 mg tablet 10 mg PO Q6H PRN (Reason: pain) Qty: 14 RF: 0 ondansetron 4 mg tablet,disintegrating 4 mg PO TID-QID PRN (Reason: nausea and vomiting) Qty: 10 RF: 0 albuterol sulfate 90 mcg/actuation HFA aerosol inhaler 2 puff INHALATION Q4-6H PRN (Reason: shortness of breath or wheezing) Qty: 8 RF: 0 quetiapine 25 mg tablet 25 mg PO DAILY RF: 0 fluticasone propion-salmeterol 250-50 mcg/dose blister with device 1 puff inhalation BID RF: 0 citalopram 20 mg tablet 20 mg PO DAILY RF: 0 trazodone 100 mg tablet 100 mg PO DAILY RF: 0 Breo Ellipta 100-25 mcg/dose blister with device 1 puff inhalation DAILY RF: 0 sumatriptan succinate 100 mg Tablet 1 tab PO 1-2XD RF: 0 diazepam 2 mg tablet 2 mg PO BID PRN (Reason: Anxiety) RF: 0 nicotine 1 patch topical DAILY RF: 0 hydrocodone-acetaminophen [[place]] 5-325 mg tablet 1 tab PO Q4-6H PRN (Reason: pain) Qty: 10 RF: 0 ketorolac 10 mg tablet 10 mg PO TID PRN (Reason: pain) Qty: 20 RF: 0 ondansetron 4 mg tablet,disintegrating 4 mg PO Q6H PRN (Reason: nausea and vomiting) Qty: 30 RF: 0 Referrals: Jc Ramos [Primary Care Provider] - <Earl Neff DO - Last Filed: 02/24/19 06:58> Sign Out Provider Sign Out Attestation: I was available for consultation during this patient's emergency department visit. This chart is signed by myself for administrative purposes only. I did not have direct contact with this patient during this visit. They were seen independently by the APC.
--- NOTE | 2019-02-23 11:19 | RT ---
PT'S BREATH SOUNDS SIGNIFICANTLY IMPROVED POST RECEIVING 9CC'S OF DUONEB. ED DR ALFONSO.
[2019-02-23 11:23] VITALS: BP 92/46; PULSE 70; RESP 21; O2SAT 100
[2019-02-23] MEDS: KETOROLAC 60 MG/2 ML VIAL 30 MG IV (12:24)
[2019-02-23] MEDS: methylPREDNISolone 125 MG/2 ML VIAL IV (12:24)
[2019-02-23 12:29] LABS: Add Manual Diff / Slide Review NO; Basophils Absolute Auto 0 /uL (0-100); Basophils Percent Auto 0.3 % (0-2); Eosinophils Absolute Auto 300 /uL (0-450); Eosinophils Percent Auto 3.1 % (2-4); Hematocrit 42.4 % (36-46); Hemoglobin 14.4 g/dL (12.0-16.0); Lymphocytes Absolute Auto 3600 /uL (1100-4500); Mean Corpuscular Hemoglobin 32.7 PG (26-34); Mean Corpuscular Volume 96.1 fL (80-100); Monocytes Absolute Auto 800 /uL (0-900); Monocytes Percent Auto 6.9 % (3-14); Neutrophils Absolute Auto 6200 /uL (1500-7000); Neutrophils Percent Auto 56.7 % (50-75); Platelet Count 206 X10^3/uL (150-400); Red Blood Cell Count 4.41 X10^6/uL (4.0-5.2); Red Cell Distribution Width 14.3 % (11.6-14.8); White Blood Cell Count 10.8 X10^3/uL (4.5-11.0)
[2019-02-23 12:30] VITALS: PULSE 98; RESP 22; O2SAT 96
[2019-02-23] MEDS: ALBUTEROL 2.5 MG/3 ML NEB (ADULT) INH (12:30)
[2019-02-23 12:40] LABS: Alanine Aminotransferase 20 IU/L (9-52); Albumin 4.1 g/dL (3.5-5.0); Albumin Globulin Ratio 1.3 (1.0-2.8); Alkaline Phosphatase 62 U/L (38-126); Aspartate Aminotransferase 22 IU/L (14-36); Bilirubin Total 0.4 mg/dL (0.2-1.3); Blood Urea Nitrogen 12 mg/dL (7-17); Calcium 8.7 mg/dL (8.4-10.2); Carbon Dioxide 27 mmol/L (22-32); Chloride 105 mmol/L (98-107); Creatine Kinase 33 U/L (30-135); Estimated Glomerular Filt Rate > 60.0 mL/min (>60); Globulin 3.1 g/dL (1.7-4.1); Glucose 106 mg/dL (70-100); HEMOLYSIS < 15 (0-50); Potassium 3.2 mmol/L (3.4-5.1); Sodium 139 mmol/L (137-145); Total Protein 7.2 g/dL (6.3-8.2)
[2019-02-23 12:52] LABS: Troponin I < 0.012 ng/mL (0.01-0.034)
[2019-02-23 13:36] LABS: Influenza A and B by PCR Rapid Negative (Negative)
[2019-02-23 14:19] VITALS: BP 141/79; PULSE 96; RESP 18; O2SAT 96
[2019-02-23 14:23] VITALS: BP 141/70; PULSE 96; RESP 18; O2SAT 100
--- NOTE | 2019-02-23 18:44 | PC.NURSE ---
Pt called at 1830 reporting that she went to her pharm and she is unable to fill her prednisone RX due to it being too soon since her last fill, and that she needs a prior auth for her lidocaine patches. Pt asking for us to change her medications. Spoke with Arielle Rooney. Pt called and advised to continue to take her prior prednisone RX until hers is available to be filled and she can wait for the prior auth to be approved or she can buy OTC lidocaine patches. Pt yelling at RN over the phone stating No I cannot buy them, I do not have the money for things like that! How do you expect me to buy them without money Advised pt she is still able to wait for the prior auth and to continue with her previous prednisone RX. Pt hung up on this RN.
== END 2019-02-23 14:25 | disposition home or self-care (01) ==
PROVIDERS: Emergency Provider Nurse Practitioner; PCP Family Medicine
DX: J44.9 Chronic obstructive pulmonary disease, unspecified (principal)
CPT/HCPCS: 36415; 71045; 80053; 82550; 84484; 85025; 87400; 87502; 93005; 94640; 96374; 96375; 99282; 99285; J1885; J2930; J7613